=== PATIENT | male | born 1995 | race Caucasian/White ===

== ENCOUNTER 2021-03-21 10:42 | Observation (INO) | payer BC, MEDICAID ==
[~2021-03-21] VITALS: Ht 180.3 cm; Wt 79.5 kg
[2021-03-21] MEDS ORDERED: AMOX875T PO (10:51)
[2021-03-21] MEDS ORDERED: CLIN-250 PO (10:51)
--- OUTSIDE RECORDS SUMMARY | 2021-03-21 11:44 | CCD | Clinical Summary ---
Author Author [facility] Organization [facility] Address [address] [place] [address] Phone Care Team Providers Care Knot Bumper Name Role Phone Kaushal BARNARD, Alia Gilliam PP [phone] Alia Easley NP, I Unavailable [phone] Reason for Referral No Reason for Referral Recorded Reason for Visit and Chief Complaint visit for: check-up - The Chief Complaint is: Patient ambulates to room for [facility] onic follow up; denies problems or concerns at this time. Dickson REED and Chance GARCIA spent 6 minutes signing in patient Problems Includes: Problems addressed during this encounter and other active Problems Current Visit Onset Date - Time Resolved Date - Time Provider C ondition Status Asthma Mild Persistent Unknown - 12:00AM Alia bright PROPERTY CLERK Active Note: Stable - mild persiste nt/controlled Plan of Treatment Future Appointments Date Time Location Provider Chronic Disease Follow-up 07/06/2021 6:20PM [facility] Alia Easley PROPERTY CLERK - Return to the clinic if condition worsens or new symptoms arise You are doing well Continue medication as rx Continue to stay well hydrated at work Call if you start to increase ventolin use F/U in 6 months. Assessments Includes: Assessments from this encounter - Mild persistent asthma Instructions Includes: Instructions from this encounterNo Instructions Recorded Medical Equipment - Implanted Devices Includes: Current DevicesNo Medical Equipment Recorded Medications Includes: Medications discussed during this encounter and other current Medicati ons Current Medications (continue as prescribed) Singulair 10 MG Oral Tablet 10/13/2020 Provider: Alia Easley NP Diagnosis: once a day EQ Loratadine 10 MG Oral Tablet 10/13/2020 Provider : Alia I Kaushal PROPERTY CLERK Diagnosis: once a day [facility] Fluticasone Propionate 50 MCG/ACT Nasal Suspension 10/13 Provider: Alia Easley PROPERTY CLERK Diagnosis: once a day- 2 sprays each nostril daily Dulera 200-5 MCG/ACT Inhalation Aerosol 10/13/2020 Provider: Alia Easley PROPERTY CLERK Diagnosis: twice a day- 2 puffs bidRinse mouth after use Ventolin HFA 108 (90 Base) MCG/ACT Inhalation Aerosol Soluti on 10/13/2020 Provider: Alia Easley PROPERTY CLERK Diagnosis: as directed 2 puffs qid prn Medications Administered Includes: Administered Medications from this encounterNo Administered Medications Recorded Vital Signs Includes: Vital Signs from this encounter Vital Name 12/29/2020 06:00P Blood Pressure Sitting R 118/72 BP Cuff Size Large Pulse Rate-Sitting (bpm) 82 Respiration Rate (breaths/min) 18 Temp-Tympanic (F) 98.1 Weight (lb) 184 Pain Level 0 Oxygen Saturation (%) 98 Results Includes: Results discussed during this encounterNo Results Recorded For Specified Dates History of Present Illness Includes: History of Present Illness from this encounter Petar Brizuela is a 25 year old male. 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 [employer]. - Allergy list reviewed - Medication reconciliation performed - Wheezing is worse with a cold - Responding to bronchodilators - No dyspnea - No cough - Not coughing up sputum - No wheezing - No swollen glands in the neck - No nasal discharge - No sore throat Social History Description Last Updated Physical activity tolerance has not recently decreased 12/29/2020 Smoking status 12/29/2020 : Never smoker 12/29/2020 No secondhand cigarette smoke exposure 10/13/2020 Educational level graduated high school 12/13/2013 Alcohol use (male) less than 4 drinks per occasion / 14 per week 12/13/2013 Caffeine use 12/13/2013 No physical disability 12/13/2013 Normal activities of daily living 12/13/2013 Not using drugs 12/13/2013 control method 05/04/2012 Sexually active 05/04/2012 Educational level: grade was twelve 05/04/2012 Amount of sleep was eight hours/day thi nks sleep is poor due to disorganized home 06/04/2008 Good exercise habits 06/04/2008 Not a current smoker 06/04/2008 Procedures and Surgical History Includes: Procedures from this encounter Procedures Code Diagnosis Performing Provider Service Location Service Date continue current medication counseling on treatment options includi ng Side Effects as well as Risks, Benefits and Alternatives Summary provided electronically in CCDA format & reasonable certainty of receipt Surgical History Last Updated No prior surgery 06/29/2007 Medical History Includes: Medical History addressed during this encounter Description Last Updated A fundoscopic exam through dilated pupils was performe d no 12/13/2013 Last saw a dentist no 12/13/2013 Medication compliance 10/17/2013 Past medical history -Please see Problem List for Act jeanette Chronic Problems 10/17/2013 No previous emergency room visit since last clinic a ppointment~ 10/30/2010 reviewed and unchanged since last visit 08/20/2010 Smoke exposure 08/20/2010 1 snacks per day 06/04/2008 3 meals per day 06/04/2008 A high-salt diet not from processed foods 06/29/2007 A high-sugar diet including sweet snacks 06/29/2007 Diet does not need reduction of caloric intake 008 Diet provides insufficient vegetables 06/29/2007 Diet provides sufficient food variety 06/29/2007 No serious weight loss attempts 06/29/2007 Taking medication inhalers for asthma 06/29/2007 Family History Includes: Family History addressed during this encounter Description Last Updated Family history of cancer Paternal grandfather 014 Family history of depression sister- bipolar 12/14/19 14 Family history of diabetes mellitus Paternal grandmot her 12/13/2013 Family history of drug use father 12/13/2013 Family in good health 05/04/2012 pt concerned about mother - they have a tough time financially, recently moved to [facility] instead of living in hotel 06/04/2008 Family history reviewed - unchanged since last visit 06/04/2008 Family history unchanged 06/04/2008 Review of Systems Includes: Review of Systems from this encounterNo Review of Systems Recorded Mental Status Includes: Mental Status from this encounter Description Oriented to time, place, and person Functional Status Includes: Functional Status from this encounterNo Functional Status Recorded Physical Exam Includes: Physical Exam from this encounter Eyes: -the extraocular movements were normal Ears, Nose, Throat: -external auditory meatus normal -tympanic membrane was normal -no nasal discharge seen -flaring nasal alae were not observed -the oropharynx was normal Neck: -the neck demonstrated no decrease in suppleness -the thyroid showed no abnormalities Chest: -no thoracic asymmetry was noted Lungs: -accessory muscles were not used during expiration -the chest was normal to percussion -normal breath sounds/voice sounds -no wheezing was heard -no rhonchi were heard -no rales/crackles were heard Cardiovascular System: -heart sounds normal -no murmurs were heard -heart rate and rhythm normal Psychiatric Exam: -the grooming was normal -the affect was normal -the mood was euthymic General Status: -well-appearing -in no acute distress -well developed -well developed -well nourished -well nourished Neurological System: -oriented to time, place, and person Skin: -the skin general appearance was normal Vital Signs: -current vital signs reviewed Immunizations Includes: Immunizations addressed during this encounterNo Immunizations Recorded Allergies Includes: Active AllergiesNo Known Allergies Encounters Encounter Provider Location Date Check-In Time Check-Out Time D iagnosis Chronic Disease Follow-up Alia Easley [facility] 021 5:59PM 6:19PM Asthma Mild Persistent Insurance Includes: Active Insurance Policies Plan Name Member ID Group # Subscriber Relationship Effective Da katlyn 1 - Mvp [id number] Petar Fergusonton Self 05/23/19 21 - Unknown 2 - Medicaid-[employer] [id number] Petar Decker on Self 01/21/2003 - Unknown 3 - [id number] [employer] Petar Fergus[place]on Self 10/26/2016 - Unknown Advance Directives Includes: Current Advance Directives Directive Pat Aware Third Libertarian Effective Date Reviewed Status Ebola Screening Performed Yes 05/28/2019 Current and Verified Note: Within the last month, have you traveled outside of the [place]? - NO packet given Pt Bill of Rights, Priv Prac, Ad Dir Yes 10/13/2020 Current and Verified Note: Pt declined AD packet Health Concerns Includes: Health Concerns for current assessmentsNo Active Health Concerns Recorded Goals Includes: Active Goals for current assessmentsNo Active Goals Recorded Interventions Includes: Interventions for current assessmentsNo Interventions Recorded Evaluations & Outcomes Includes: Evaluations & Outcomes for current assessmentsNo Outcomes Recorded
--- OUTSIDE RECORDS SUMMARY | 2021-03-21 11:44 | CCD ---
Author Author [facility] Organization [facility] Address [address] [place], [place] [id number] Phone Care Team Providers Care Night Time Babysitter Name Role Phone LUCIO SHEPPARD Unavailable Allergies, Adverse Reactions, Alerts No Known Drug Allerg ies 07/30/2015 Medications * Discontinued: * Belen Rush * Ventolin HFA 90 mcg/actuation aerosol inhaler 10/14/2015 * LUCIO POST * Flovent HFA 110 mcg/actuation aerosol inhaler 01/15/2021 * Lidocaine Viscous 2 % mucosal solution 01/15/2021 * ketorolac 10 mg tablet 01/15/2021 * amoxicillin 500 mg tablet 01/15/2021 * * ketorolac 10 mg tablet 01/28/2016 * cyclobenzaprine 10 mg tablet 01/28/2016 * Ventolin HFA 90 mcg/actuation aerosol inhaler 02/19/2017 * Ventolin HFA 90 mcg/actuation aerosol inhaler 02/19/2017 * Flovent HFA 110 mcg/actuation aerosol inhaler 02/19/2017 * predniSONE 20 mg tablet 02/19/2017 * predniSONE 20 mg tablet 04/15/2018 * Patsy Chester * Zithromax Z-Adolfo 250 mg tablet 11/29/2016 * predniSONE 20 mg tablet 11/29/2016 * Tessalon Perles 100 mg capsule 11/29/2016 * Pre-existing: * Ventolin HFA 90 mcg/actuation aerosol inhaler Problems Addressed During This Encounter Contact with and (suspected) exposure to other viral communicable diseases (Z20.828) 04/22/2020 Resolved: Moderate persistent asthma, uncomplicated (J45.40) 04/15/2018 Pain in thoracic spine (M54.6) 04/15/2018 Cough (R05) 04/15/2018 Acute bronchitis, unspecified (J20.9) 04/15/2018 Acute pharyngitis, unspecified (J02.9) 04/15/2018 Urticaria, unspecified (L50.9) 04/15/2018 Jaw pain (R68.84) 01/15/2021 Results SARS COV2 SOURCE: NASOPHARYNGEAL 020 Chief Complaint covid testing Jaw painStart amoxicillin ketorolac and viscous lidocaineFollow up with the dentist JAW PAIN Patient states that after being at worl for about 20mins he started to break out in hives, PharyngitisRapid strep negativeThroat cu lture sentAsthmaExacerbationStart prednisone Flovent and albuterol Pt c/o cough and wheezing x 2 days. C/O cough, nasal congestion, periodic JIMÉNEZ , sinus pressure, ear pressure, ST, SOB, body aches x 4-5 days. Pt amb to office with complaint of falli ng on a concrete floor after using a chin up bar in doorway. Pt states that he fell a few hours ago and now has constant dull pain in upper back. PT ambulated to to discuss medication refill; Ventolin. Procedures Performed and Ordered Today * MED SERV, JULEE/WKEND/HOLIDAY 07/30/2015 * RAPID STREP 11/29/2016 * INJECTION IM/SC 02/19/2017 * MED SERV, JULEE/WKEND/HOLIDAY 04/15/2018 * INFECTIOUS AGENT ANTIGEN DETECTION 04/22/2020 * INFECTIOUS AGENT ANTIGEN DETECTION 04/28/2020 * COVID PCR 01/15/2021 * INFECTIOUS AGENT DETECTION COMPLETED WITHIN 2 DAYS 01/15/2021 * * Lab: Collected Date 11/29/16 1656 11/29/2016 THROAT PO CULTURE 11/29/2016 COVID PCR 04/28/2020 Test: AIRWAY INHALATION TREAT 02/19/2017 AIRWAY INHALATION TREAT 02/19/2017 CORRUGATED TUBING DISPOSIBLE W/LG VOL NEB 100 FT 02/19/2017 ABLUTEROL INHALATION DANIS 0.5MG 5 units 02/19/2017 Injection: METHYLPREDNISOLONE SODIUM SUCCINATE INJ TO 125 MG 02/19/2017 Vital signs Body Temperature: Heart Rate: Respiratory Rate: BP: Height: Weight: BMI: O2 Percentage BldC Oximetry : Inhaled Oxygen Concentration: 97.0F 04/15/2018 81 beats per minute 04/15/2018 16 breaths per minute 10/14/2015 110/ 72 mmHg 04/15/2018 5ft, 11in 04/15/2018 188lbs 04/15/20 18 26.218 04/15/2018 98% 04/15/2018 21% 04/15/2018 Immunizations Social History Smoking Status: Never smoker. 04/15/2018 Reason for Referral Functional Status Plan of Treatment Appointments [facility] ed: Thursday, July 30, 2015, 6:10 PM, LUCIO POST Wednesday, October 14, 2015, 4:00 PM, LUCIO POST Thursday, January 28, 2016, 2:00 PM, LUCIO POST Tuesday, November 29, 2016, 4:20 PM, LUCIO POST Sunday, February 19, 2017, 10:40 AM, JOHNNIE POST Sunday, April 15, 2018, 2:30 PM, LUCIO POST Wednesday, April 22, 2020, 8:45 PM, LUCIO POST Tuesday, April 28, 2020, 8:45 PM, SUPRIYA MAY NP December, 8:40 PM, Visits Nurse Instructions: <Follow up with primary care> Return if symptoms worsen <Follow up with primary care> If your symptoms worsen, go to the Emergency Room. When taking antibiotics, also take probiotics. take 1 Prednisone tablet tonight before bedtake 50mg Benadryl tid for next 24 hours <Follow up with primary care> Return if symptoms worsen We will call with lab and/or xray results Return if symptoms worsen When taking antibiotics, also take probiotics. If your symptoms worsen, go to the Emergency Room. The cyclobenzaprine will cause drowsinessIf you haven't improved in a day or two call me and we can order x-rays Symptomatic treatment with OTC cold medications as needed per label instructions as long as you do not have any allergies or intolerance to these medication Payers Insurance Policy Type Po licy ID Relation Subscriber Expi ration [facility] Commercial Insurance [id number] Víctor BECERRA [facility] Cross Blue Cross/Shield [id number] Víctor BECERRA Encounters OFFICE/OUTPATIENT SIT,EST 01/15/2021 Diagnoses Contact with and (suspected) exposure to other viral communicable diseases OFFICE/OUTPATIENT SIT, EST 04/15/2018 OFFICE/OUTPATIENT SIT, EST 02/19/2017 OFFICE/OUTPATIENT SIT, EST 11/29/2016 OFFICE/OUTPATIENT SIT, EST 01/28/2016 OFFICE/OUTPATIENT SIT, EST 10/14/2015 OFFICE/OUTPATIENT SIT, EST 07/30/2015
--- OUTSIDE RECORDS SUMMARY | 2021-03-21 11:44 | CCD ---
Author Author [facility] Organization [facility] Address [address] [place], [place] [id number] Phone Care Team Providers Care Seasonal Delivery Driver Name Role Phone LUCIO SHEPPARD Unavailable Allergies, Adverse Reactions, Alerts No Known Drug Allerg ies 07/30/2015 Medications * Continue: * LUCIO POST * amoxicillin 875 mg tablet , Take 1 tablet orally Every 12 hours 03/16/2021 * Discontinued: * Belen Rush * Ventolin HFA 90 mcg/actuation aerosol inhaler 10/14/2015 * LUCIO POST * Flovent HFA 110 mcg/actuation aerosol inhaler 01/15/2021 * Lidocaine Viscous 2 % mucosal solution 01/15/2021 * ketorolac 10 mg tablet 01/15/2021 * amoxicillin 500 mg tablet 01/15/2021 * * ketorolac 10 mg tablet 01/28/2016 * cyclobenzaprine 10 mg tablet 01/28/2016 * Patsy Chester * Zithromax Z-Adolfo 250 mg tablet 11/29/2016 * predniSONE 20 mg tablet 11/29/2016 * Tessalon Perles 100 mg capsule 11/29/2016 * mir rodriguez LPN * Ventolin HFA 90 mcg/actuation aerosol inhaler 02/19/2017 * Ventolin HFA 90 mcg/actuation aerosol inhaler 02/19/2017 * Flovent HFA 110 mcg/actuation aerosol inhaler 02/19/2017 * predniSONE 20 mg tablet 02/19/2017 * predniSONE 20 mg tablet 04/15/2018 * Pre-existing: * Ventolin HFA 90 mcg/actuation aerosol inhaler Problems Addressed During This Encounter Jaw pain (R68.84) 03/16/2021 Resolved: Moderate persistent asthma, uncomplicated (J45.40) 04/15/2018 Pain in thoracic spine (M54.6) 04/15/2018 Cough (R05) 04/15/2018 Acute bronchitis, unspecified (J20.9) 04/15/2018 Acute pharyngitis, unspecified (J02.9) 04/15/2018 Urticaria, unspecified (L50.9) 04/15/2018 Jaw pain (R68.84) 01/15/2021 Contact with and (suspected) exposure to other viral communicable diseases (Z20.828) 03/16/2021 Contact with and (suspected) exposure to other viral communicable diseases (Z20.828) 03/16/2021 Results SARS COV2 SOURCE: NASOPHARYNGEAL 020 Chief Complaint Jaw painLikely dental infectionStart yony xicillinFollow up with the dentist JAW INFECTION Testing for COVID19 is negative. Howeve r - negative results do not rule out a SARS CoV-2 infection, particularly in those who have been in contact with the virus.Supportive symptom management is recommendedWear a mask, diligent hand hygiene and social distancingVit C, D, and Zinc recommended, if not contraindicated for youStay hydratedSleep on abdomen or side when coughing. Follow up with any worsening symptoms for further guidanceQuarantine when indicated COVID TEST covid testing Jaw painStart amoxicillin ketorolac and [...] DETECTION COMPLETED WITHIN 2 DAYS 01/15/2021 * COVID PCR 02/04/2021 * INFECTIOUS AGENT DETECTION COMPLETED WITHIN 2 DAYS 02/04/2021 * * Lab: Collected Date 11/29/16 1656 11/29/2016 THROAT PO CULTURE 11/29/2016 COVID PCR 04/28/2020 Test: AIRWAY INHALATION TREAT 02/19/2017 AIRWAY INHALATION TREAT 02/19/2017 ABLUTEROL INHALATION DANIS 0.5MG 5 units 02/19/2017 CORRUGATED TUBING DISPOSIBLE W/LG VOL NEB 100 FT 02/19/2017 Injection: METHYLPREDNISOLONE SODIUM SUCCINATE INJ TO 125 MG 02/19/2017 Vital signs Body Temperature: Heart Rate: Respiratory Rate: BP: Height: Weight: BMI: O2 Percentage BldC Oximetry : Inhaled Oxygen Concentration: 98.3F 03/16/2021 118 beats per minut e 03/16/2021 16 breaths per minute 10/14/2015 110/ 72 mmHg 04/15/2018 5ft, 11in 03/16/2021 190lbs 03/16/20 21 26.497 03/16/2021 98% 03/16/2021 21% 03/16/2021 Immunizations Social History Smoking Status: Never smoker. 04/15/2018 Reason for Referral Functional Status Plan of Treatment Appointments [facility] ed: Thursday, July 30, 2015, 6:10 [...] MAY NP December, 8:40 PM, Visits Nurse Thursday, February 04, 2021, 4:50 PM, Visits Covid Tuesday, March 16, 2021, 11:40 AM, LUCIO POST Instructions: <Follow up with primary care> Return if symptoms worsen When taking antibiotics, also take probiotics. Follow up with the dentist <Follow up with primary care> Return if [...] Po licy ID Relation Subscriber Expi ration [facility] Commercial Insurance [id number] Self SUZI BECERRA [facility] Blue Cross/[facility] [id number] Self SUZI BECERRA Encounters OFFICE/OUTPATIENT SIT, EST 03/16/2021 Diagnoses Jaw pain OFFICE/OUTPATIENT SIT,EST 02/04/2021 Diagnoses Contact with and (suspected) exposure to other viral communicable diseases OFFICE/OUTPATIENT SIT,EST 01/15/2021 Diagnoses Contact with and (suspected) exposure to other viral communicable diseases OFFICE/OUTPATIENT SIT, EST 04/15/2018 OFFICE/OUTPATIENT SIT, EST 02/19/2017 OFFICE/OUTPATIENT SIT, EST 11/29/2016 OFFICE/OUTPATIENT SIT, EST 01/28/2016 OFFICE/OUTPATIENT SIT, EST 10/14/2015 OFFICE/OUTPATIENT SIT, EST 07/30/2015
--- OUTSIDE RECORDS SUMMARY | 2021-03-21 11:45 | CCD ---
Author Author [facility] Organization [facility] Address Unknown Phone Unavailable Care Team Providers Care Food Services Director Name Role Phone Douglas Gee Kisha NETWORKING SPECIALIST Unavailable Unavailable Potter, M Kisha NETWORKING SPECIALIST Unavailable Unavailable Potter, M Kisha NETWORKING SPECIALIST Unavailable Unavailable Potter, M Kisha NETWORKING SPECIALIST Unavailable Unavailable Potter, M Kisha NETWORKING SPECIALIST Unavailable Unavailable Potter, M Kisha NETWORKING SPECIALIST Unavailable Unavailable Potter, M Kisha NETWORKING SPECIALIST Unavailable Unavailable Potter, M Kisha NETWORKING SPECIALIST Unavailable Unavailable Potter, M Kisha NETWORKING SPECIALIST Unavailable Unavailable Potter, M Kisha NETWORKING SPECIALIST Unavailable Unavailable Potter, M Kisha NETWORKING SPECIALIST Unavailable Unavailable Potter, M Kisha NETWORKING SPECIALIST Unavailable Unavailable Potter, M Kisha NETWORKING SPECIALIST Unavailable Unavailable Potter, M Kisha NETWORKING SPECIALIST Unavailable Unavailable Potter, M Kisha NETWORKING SPECIALIST Unavailable Unavailable Potter, M Kisha NETWORKING SPECIALIST Unavailable Unavailable Potter, M Kisha NETWORKING SPECIALIST Unavailable Unavailable Potter, M Kisha NETWORKING SPECIALIST Unavailable Unavailable Potter, M Kisha NETWORKING SPECIALIST Unavailable Unavailable Potter, M Kisha NETWORKING SPECIALIST Unavailable Unavailable Potter, M Kisha NETWORKING SPECIALIST Unavailable Unavailable Potter, M Kisha NETWORKING SPECIALIST Unavailable Unavailable Potter, M Kisha NETWORKING SPECIALIST Unavailable Unavailable Potter, M Kisha NETWORKING SPECIALIST Unavailable Unavailable Potter, M Kisha NETWORKING SPECIALIST Unavailable Unavailable Potter, M Kisha NETWORKING SPECIALIST Unavailable Unavailable Potter, M Kisha NETWORKING SPECIALIST Unavailable Unavailable Potter, M Kisha NETWORKING SPECIALIST Unavailable Unavailable Potter, M Kisha NETWORKING SPECIALIST Unavailable Unavailable Potter, M Kisha NETWORKING SPECIALIST Unavailable Unavailable Potter, M Kisha NETWORKING SPECIALIST Unavailable Unavailable Potter, M Kisha NETWORKING SPECIALIST Unavailable Unavailable Potter, M Kisha NETWORKING SPECIALIST Unavailable Unavailable Potter, M Kisha NETWORKING SPECIALIST Unavailable Unavailable Potter, M Kisha NETWORKING SPECIALIST Unavailable Unavailable Potter, M Kisha NETWORKING SPECIALIST Unavailable Unavailable Potter, M Kisha NETWORKING SPECIALIST Unavailable Unavailable Potter, M Kisha NETWORKING SPECIALIST Unavailable Unavailable Potter, M Kisha NETWORKING SPECIALIST Unavailable Unavailable Potter, M Kisha NETWORKING SPECIALIST Unavailable Unavailable Potter, M Kisha NETWORKING SPECIALIST Unavailable Unavailable Potter, M Kisha NETWORKING SPECIALIST Unavailable Unavailable Potter, M Kisha NETWORKING SPECIALIST Unavailable Unavailable Potter, M Kisha NETWORKING SPECIALIST Unavailable Unavailable Potter, M Kisha NETWORKING SPECIALIST Unavailable Unavailable Potter, M Kisha NETWORKING SPECIALIST Unavailable Unavailable Potter, M Kisha NETWORKING SPECIALIST Unavailable Unavailable Potter, M Kisha NETWORKING SPECIALIST Unavailable Unavailable Potter, M Kisha NETWORKING SPECIALIST Unavailable Unavailable Potter, M Kisha NETWORKING SPECIALIST Unavailable Unavailable Potter, M Kisha NETWORKING SPECIALIST Unavailable Unavailable Potter, M Kisha NETWORKING SPECIALIST Unavailable Unavailable Potter, M Kisha NETWORKING SPECIALIST Unavailable Unavailable Potter, M Kisha NETWORKING SPECIALIST Unavailable Unavailable Potter, M Kisha NETWORKING SPECIALIST Unavailable Unavailable Potter, M Kisha NETWORKING SPECIALIST Unavailable Unavailable Potter, M Kisha NETWORKING SPECIALIST Unavailable Unavailable Potter, M Kisha NETWORKING SPECIALIST Unavailable Unavailable Kaushal, I Alia NETWORKING SPECIALIST Unavailable Unavailable Kaushal, I Alia NETWORKING SPECIALIST Unavailable Unavailable Kaushal, I Alia NETWORKING SPECIALIST Unavailable Unavailable Kaushal, I Alia NETWORKING SPECIALIST Unavailable Unavailable Kaushal, I Alia NETWORKING SPECIALIST Unavailable Unavailable Kaushal, I Alia NETWORKING SPECIALIST Unavailable Unavailable Kaushal, I Alia NETWORKING SPECIALIST Unavailable Unavailable Kaushal, I Alia NETWORKING SPECIALIST Unavailable Unavailable Kaushal, I Alia NETWORKING SPECIALIST Unavailable Unavailable Kaushal, I Alia NETWORKING SPECIALIST Unavailable Unavailable Kaushal, I Alia NETWORKING SPECIALIST Unavailable Unavailable Kaushal, I Alia NETWORKING SPECIALIST Unavailable Unavailable Kaushal, I Alia NETWORKING SPECIALIST Unavailable Unavailable Kaushal, I Alia NETWORKING SPECIALIST Unavailable Unavailable Kaushal, I Alia NETWORKING SPECIALIST Unavailable Unavailable Kaushal, I Alia NETWORKING SPECIALIST Unavailable Unavailable Kaushal, I Alia NETWORKING SPECIALIST Unavailable Unavailable Kaushal, I Alia NETWORKING SPECIALIST Unavailable Unavailable Kaushal, I Alia NETWORKING SPECIALIST Unavailable Unavailable Kaushal, I Alia NETWORKING SPECIALIST Unavailable Unavailable Kaushal, I Alia NETWORKING SPECIALIST Unavailable Unavailable Kaushal, I Alia NETWORKING SPECIALIST Unavailable Unavailable Kaushal, I Alia NETWORKING SPECIALIST Unavailable Unavailable Kaushal, I Alia NETWORKING SPECIALIST Unavailable Unavailable Kaushal, I Alia NETWORKING SPECIALIST Unavailable Unavailable Kaushal, I Alia NETWORKING SPECIALIST Unavailable Unavailable Kaushal, I Alia NETWORKING SPECIALIST Unavailable Unavailable Kaushal, I Alia NETWORKING SPECIALIST Unavailable Unavailable Kaushal, I Alia NETWORKING SPECIALIST Unavailable Unavailable Kaushal, I Alia NETWORKING SPECIALIST Unavailable Unavailable Kaushal, I Alia NETWORKING SPECIALIST Unavailable Unavailable Kaushal, I Alia NETWORKING SPECIALIST Unavailable Unavailable Kaushal, I Alia NETWORKING SPECIALIST Unavailable Unavailable Kaushal, I Alia NETWORKING SPECIALIST Unavailable Unavailable Kaushal, I Alia NETWORKING SPECIALIST Unavailable Unavailable Kaushal, I Alia NETWORKING SPECIALIST Unavailable Unavailable Kaushal, I Alia NETWORKING SPECIALIST Unavailable Unavailable Kaushal, I Alia NETWORKING SPECIALIST Unavailable Unavailable Kaushal, I Alia NETWORKING SPECIALIST Unavailable Unavailable Kaushal, I Alia NETWORKING SPECIALIST Unavailable Unavailable Kaushal, I Alia NETWORKING SPECIALIST Unavailable Unavailable Kaushal, I Alia NETWORKING SPECIALIST Unavailable Unavailable Kaushal, I Alia NETWORKING SPECIALIST Unavailable Unavailable Kaushal, I Alia NETWORKING SPECIALIST Unavailable Unavailable Kaushal, I Alia NETWORKING SPECIALIST Unavailable Unavailable Kaushal, I Alia NETWORKING SPECIALIST Unavailable Unavailable Kaushal, I Alia NETWORKING SPECIALIST Unavailable Unavailable Kaushal, I Alia NETWORKING SPECIALIST Unavailable Unavailable Kaushal, I Alia NETWORKING SPECIALIST Unavailable Unavailable Kaushal, I Alia NETWORKING SPECIALIST Unavailable Unavailable Kaushal, I Alia NETWORKING SPECIALIST Unavailable Unavailable Kaushal, I Alia NETWORKING SPECIALIST Unavailable Unavailable Kaushal, I Alia NETWORKING SPECIALIST Unavailable Unavailable Kaushal, I Alia NETWORKING SPECIALIST Unavailable Unavailable Kaushal, I Alia NETWORKING SPECIALIST Unavailable Unavailable Kaushal, I Alia NETWORKING SPECIALIST Unavailable Unavailable Kaushal, I Alia NETWORKING SPECIALIST Unavailable Unavailable Kaushal, I Alia NETWORKING SPECIALIST Unavailable Unavailable Kaushal, I Alia NETWORKING SPECIALIST Unavailable Unavailable Kaushal, I Alia NETWORKING SPECIALIST Unavailable Unavailable Kaushal, I Alia NETWORKING SPECIALIST Unavailable Unavailable Kaushal, I Alia NETWORKING SPECIALIST Unavailable Unavailable Kaushal, I Alia NETWORKING SPECIALIST Unavailable Unavailable Kaushal, I Alia NETWORKING SPECIALIST Unavailable Unavailable Kaushal, I Alia NETWORKING SPECIALIST Unavailable Unavailable Kaushal, I Alia NETWORKING SPECIALIST Unavailable Unavailable Kaushal, I Alia NETWORKING SPECIALIST Unavailable Unavailable Kaushal, I Alia NETWORKING SPECIALIST Unavailable Unavailable Kaushal, I Alia NETWORKING SPECIALIST Unavailable Unavailable Kaushal, I Alia NETWORKING SPECIALIST Unavailable Unavailable Kaushal, I Alia NETWORKING SPECIALIST Unavailable Unavailable Kaushal, I Alia NETWORKING SPECIALIST Unavailable Unavailable Kaushal, I Alia NETWORKING SPECIALIST Unavailable Unavailable Kaushal, I Alia NETWORKING SPECIALIST Unavailable Unavailable Kaushal, I Alia NETWORKING SPECIALIST Unavailable Unavailable SHEPPARD, W LUCIO PA Unavailable Unavailable SHEPPARD, W LUCIO PA Unavailable Unavailable SHEPPARD, W LUCIO PA Unavailable Unavailable SHPEPARD, W LUCIO PA Unavailable Unavailable SHEPPARD, W LUCIO PA Unavailable Unavailable SHEPPARD, W LUCIO PA Unavailable Unavailable SHEPPARD, W LUCIO PA Unavailable Unavailable SHEPPARD, W LUCIO PA Unavailable Unavailable SHEPPARD, W LUCIO PA Unavailable Unavailable SHEPPARD, W LUCIO PA Unavailable Unavailable SHEPPARD, W LUCIO PA Unavailable Unavailable SHEPPARD, W LUCIO PA Unavailable Unavailable SHEPPARD, W LUCIO PA Unavailable Unavailable SHEPPARD, W LUCIO PA Unavailable Unavailable SHEPPARD, W LUICO PA Unavailable Unavailable SHEPPARD, W LUCIO PA Unavailable Unavailable SHEPPARD, W LUCIO PA Unavailable Unavailable SHEPPARD, W LUCIO PA Unavailable Unavailable SHEPPARD, W LUCIO PA Unavailable Unavailable SHEPPARD, W LUCIO PA Unavailable Unavailable SHEPPARD, W LUCIO PA Unavailable Unavailable SHEPPARD, W LUCIO PA Unavailable Unavailable SHEPPARD, W LUCIO PA Unavailable Unavailable SHEPPARD, W LUCIO PA Unavailable Unavailable SHEPPARD, W LUCIO PA Unavailable Unavailable SHEPPARD, W LUCIO PA Unavailable Unavailable SHEPPARD, W LUCIO PA Unavailable Unavailable SHEPPARD, W LUCIO PA Unavailable Unavailable SHEPPARD, W LUCIO PA Unavailable Unavailable SHEPPARD, W LUCIO PA Unavailable Unavailable SHEPPARD, W LUCIO PA Unavailable Unavailable SHEPPARD, W LUCIO PA Unavailable Unavailable SHEPPARD, W LUCIO PA Unavailable Unavailable SHEPPARD, W LUCIO PA Unavailable Unavailable SHEPPARD, W LUCIO PA Unavailable Unavailable SHEPPARD, W LUCIO PA Unavailable Unavailable SHEPPARD, W LUCIO PA Unavailable Unavailable SHEPPARD, W LUCIO PA Unavailable Unavailable SHEPPARD, W LUCIO PA Unavailable Unavailable SHEPPARD, W LUCIO PA Unavailable Unavailable SHEPPARD, W LUCIO PA Unavailable Unavailable Claudia SHEPPARD PA Unavailable Unavailable VALARIE, Claudia POST Unavailable Unavailable Claudia SHEPPARD PA Unavailable Unavailable Re-disclosure Warning The records that you are about to access may contain information from federally-assisted alcohol or drug abuse programs. If such information is present, then the following federally mandated warning applies: This information has been disclosed to you from records protected by federal confidentiality rules (42 CFR part 2). The federal rules prohibit you from making any further disclosure of this information unless further disclosure is expressly permitted by the written consent of the person to whom it pertains or as otherwise permitted by 42 CFR part 2. A general authorization for the release of medical or other information is NOT sufficient for this purpose. The Federal rules restrict any use of the information to criminally investigate or prosecute any alcohol or drug abuse patient.The records that you are about to access may contain highly sensitive health information, the redisclosure of which is protected by Article 27-F of the [facility] Public Health law. If you continue you may have access to information: Regarding HIV / AIDS; Provided by facilities licensed or operated by the [facility] Office of Mental Health; or Provided by the [facility] Office for People With Developmental Disabilities. If such information is present, then the following [facility] mandated warning applies: This information has been disclosed to you from confidential records which are protected by state law. State law prohibits you from making any further disclosure of this information without the specific written consent of the person to whom it pertains, or as otherwise permitted by law. Any unauthorized further disclosure in violation of state law may result in a fine or long term sentence or both. A general authorization for the release of medical or other information is NOT sufficient authorization for further disc losure. 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 Descr iption Data Source(s) packet given Pt Bill of Rights, Priv Prac, Ad Dir completed packet given Pt Bill of Rights, Priv Prac, Ad Dir [facility] ([facility]) Note: Pt declined AD packet Allergies and Adverse Reactions Type Description Substance Reaction Status Data Source(s ) Allergy to substance No Known Allergies No known allergies (situation ) [facility] ([facility]) Allergy to substance No Known Allergies No known allergies (situation ) [facility] Encounters Encounter Providers Location Date Indications Data Source(s ) OutpatientOFFICE/OUTPATIENT VISIT, EST 03/16/2021 Attender: LUCIO POST 03/16/2021 12:30:25 PM EDT 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[facility]) OFFICE/OUTPATIENT VISIT,EST 02/04/2021Outpatient Attender: Анна Gee NP 02/04/2021 06:13:35 PM EDT 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[facility]) OFFICE/OUTPATIENT VISIT,EST 01/15/2021Outpatient Attender: FABIANA POST 01/15/2021 05:16:04 PM EDT 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[facility]) <td ID="encounterTypeDescriptionID0">Chr onic Disease Follow-up</td><td>Alia Easley NP</td><td>[facility]</td><td>12/29/2020</td><td>5:59PM</td><td>6:19PM</td><td><content ID="encounterDiagnosisID0-0">Asthma Mild Persistent</content></td>Outpatient Attender: Alia Easley NP [facility] 12/29/2020 05:59:00 PM EDT - 12/29/2020 06:19:23 PM EDT Asthma Mild Persistent [facility] ([facility]) Asthma Mild Persistent Outpatient<td ID="encounterTypeDescripti onID0">Chronic Disease Follow- up</td><td>Alia Easley NP</td><td>[facility]</td><td>10/13/2020</td><td>6:08PM</td><td>6:43PM</td><td><content ID="encounterDiagnosisID0-0">Kyphoscoliosis</content>, <content ID="encounterDiagnosisID0-1">Visit For: Routine Adult H&p Without Abnormal Findings</content>, <content ID="encounterDiagnosisID0-2">Asthma Moderate Persistent</content></td> Attender: Alia Easley NP [facility] 2020 06:08:00 PM EDT - 10/13/2020 06:43:43 PM EDT Asthma Moderate PersistentVisit For: Routine Adult H&p Without Abnormal FindingsKyphoscoliosis [facility] ([facility]) Asthma Moderate Persistent Visit For: Routine Adult H&p Without Abn ormal Findings Kyphoscoliosis Medications Medication Brand Name Start Date Product Form Dose Route Admi nistrative Instructions Pharmacy Instructions Status Indications Reaction Description Data Source(s) Clindamycin 300 MG Oral Capsule CLINDAMYCIN HCL 03/18/2021 12:00 :00 AM EDT capsule 30 TAKE ONE CAPSULE BY MOUTH EVERY 8 HOURS TAKE ONE CAPSULE BY MOUTH EVERY 8 HOURS SOLD: 03/19/2021 [facility] Amoxicillin 875 MG Oral Tablet amoxicillin 875 mg tabl et amoxicillin 875 mg tablet 03/16/2021 12:00:00 AM EDT 1 completed , Take 1 tablet orally Every 12 hours 03/16/2021 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[facility]) 875 mg 03/16/2021 12:00:00 AM EDT tablet 20 TAKE ONE TABLET BY MOUTH EVERY 12 HOURS TAKE ONE TABLET BY MOUTH EVERY 12 HOURS SOLD: 03/16/2021 [facility] 10 mg 10/13/2020 12:00:00 AM EDT tablet 30 TAKE ONE TABLET BY MOUTH EVERY DAY TAKE ONE TABLET BY MOUTH EVERY DAY SOLD: 03/14/2021 [facility] 50 mcg/actuation 10/13/2020 12:00:00 AM EDT spray,suspension 16 SPRAY TWO SPRAYS IN EACH NOSTRIL EVERY DAY SPRAY TWO SPRAYS IN EACH NOSTRIL EVERY DAY SOLD: 10/19/2020 [facility] montelukast 10 MG Oral Tablet MONTELUKAST SODIUM 10/13/2020 12:0 0:00 AM EDT tablet 30 TAKE ONE TABLET BY MOUTH EVERY D AY TAKE ONE TABLET BY MOUTH EVERY DAY SOLD: 03/14/2021 [facility] 50 mcg/actuation 10/13/2020 12:00:00 AM EDT spray,suspension 16 SPRAY TWO SPRAYS IN EACH NOSTRIL EVERY DAY SPRAY TWO SPRAYS IN EACH NOSTRIL EVERY DAY SOLD: 11/18/2020 [facility] 50 mcg/actuation 10/13/2020 12:00:00 AM EDT spray,suspension 16 SPRAY TWO SPRAYS IN EACH NOSTRIL EVERY DAY SPRAY TWO SPRAYS IN EACH NOSTRIL EVERY DAY SOLD: 12/18/2020 [facility] montelukast 10 MG Oral Tablet MONTELUKAST SODIUM 10/13/2020 12:0 0:00 AM EDT tablet 30 TAKE ONE TABLET BY MOUTH EVERY D AY TAKE ONE TABLET BY MOUTH EVERY DAY SOLD: 01/21/2021 [facility] 120 ACTUAT formoterol fumarate 0.005 MG/ ACTUAT / mometasone furoate 0.2 MG/ACTUAT Metered Dose Inhaler [Dulera] 200-5 mcg/actuation MOMETASONE/FORMOTEROL 10/13/2020 12:00:00 AM EDT HFA aerosol inhaler 13 INHALE TWO PUFFS BY MOUTH TWICE A DAY RINSE MOUTH AFTER USE INHALE TWO PUFFS BY MOUTH TWICE A DAY RINSE MOUTH AFTER USE SOLD: 10/19/2020 [facility] montelukast 10 MG Oral Tablet MONTELUKAST SODIUM 10/13/2020 12:0 0:00 AM EDT tablet 30 TAKE ONE TABLET BY MOUTH EVERY D AY TAKE ONE TABLET BY MOUTH EVERY DAY SOLD: 12/18/2020 [facility] 200 ACTUAT Albuterol 0.09 MG/ACTUAT Mete red Dose Inhaler [Ventolin] Ventolin HFA 108 (90 Base) MCG/ACT Inhalation Aerosol Solution Ventolin HFA 108 (90 Base) MCG/ACT Inhalation Aerosol Solution 10/13/2020 12:00:00 AM EDT active [id number] 200 ACTUAT albuter ol 0.09 MG/ACTUAT Metered Dose Inhaler [Ventolin] [facility] ([facility]) montelukast 10 MG Oral Tablet MONTELUKAST SODIUM 10/13/2020 12:0 0:00 AM EDT tablet 30 TAKE ONE TABLET BY MOUTH EVERY D AY TAKE ONE TABLET BY MOUTH EVERY DAY SOLD: 11/18/2020 [facility] 90 mcg/actuation 10/13/2020 12:00:00 AM EDT HFA aerosol inha ler 18 INHALE TWO PUFFS BY MOUTH FOUR TIMES A DAY NEEDED INHALE TWO PUFFS BY MOUTH FOUR TIMES A DAY NEEDED SOLD: 10/19/2020 [facility] 60 ACTUAT formoterol fumarate 0.005 MG/A CTUAT / mometasone furoate 0.2 MG/ACTUAT Metered Dose Inhaler [Dulera] Dulera 200-5 MCG/ACT Inhalation Aerosol Dulera 200-5 MCG/ACT Inhalation Aerosol 10/13/2020 12:00:00 AM EDT 1 active 60 ACTUAT formoterol fumarate 0.005 MG/A CTUAT / mometasone furoate 0.2 MG/ACTUAT Metered Dose Inhaler [Dulera] [facility] ([facility]) montelukast 10 MG Oral Tablet MONTELUKAST SODIUM 10/13/2020 12:0 0:00 AM EDT tablet 30 TAKE ONE TABLET BY MOUTH EVERY D AY TAKE ONE TABLET BY MOUTH EVERY DAY SOLD: 10/19/2020 [facility] 90 mcg/actuation 10/13/2020 12:00:00 AM EDT HFA aerosol inha ler 18 INHALE TWO PUFFS BY MOUTH FOUR TIMES A DAY NEEDED INHALE TWO PUFFS BY MOUTH FOUR TIMES A DAY NEEDED SOLD: 11/18/2020 [facility] 120 ACTUAT formoterol fumarate 0.005 MG/ ACTUAT / mometasone furoate 0.2 MG/ACTUAT Metered Dose Inhaler [Dulera] 200-5 mcg/actuation MOMETASONE/FORMOTEROL 10/13/2020 12:00:00 AM EDT HFA aerosol inhaler 13 INHALE TWO PUFFS BY MOUTH TWICE A DAY RINSE MOUTH AFTER USE INHALE TWO PUFFS BY MOUTH TWICE A DAY RINSE MOUTH AFTER USE SOLD: 01/21/2021 [facility] 90 mcg/actuation 10/13/2020 12:00:00 AM EDT HFA aerosol inha ler 8 INHALE TWO PUFFS BY MOUTH FOUR TIMES A DAY NEEDED INHALE TWO PUFFS BY MOUTH FOUR TIMES A DAY NEEDED SOLD: 12/18/2020 [facility] 120 ACTUAT formoterol fumarate 0.005 MG/ ACTUAT / mometasone furoate 0.2 MG/ACTUAT Metered Dose Inhaler [Dulera] 200-5 mcg/actuation MOMETASONE/FORMOTEROL 10/13/2020 12:00:00 AM EDT HFA aerosol inhaler 13 INHALE TWO PUFFS BY MOUTH TWICE A DAY RINSE MOUTH AFTER USE INHALE TWO PUFFS BY MOUTH TWICE A DAY RINSE MOUTH AFTER USE SOLD: 12/18/2020 [facility] 120 ACTUAT formoterol fumarate 0.005 MG/ ACTUAT / mometasone furoate 0.2 MG/ACTUAT Metered Dose Inhaler [Dulera] 200-5 mcg/actuation MOMETASONE/FORMOTEROL 10/13/2020 12:00:00 AM EDT HFA aerosol inhaler 13 INHALE TWO PUFFS BY MOUTH TWICE A DAY RINSE MOUTH AFTER USE INHALE TWO PUFFS BY MOUTH TWICE A DAY RINSE MOUTH AFTER USE SOLD: 11/18/2020 [facility] 10 mg 10/13/2020 12:00:00 AM EDT tablet 30 TAKE ONE TABLET BY MOUTH EVERY DAY TAKE ONE TABLET BY MOUTH EVERY DAY SOLD: 10/19/2020 [facility] 10 mg 10/13/2020 12:00:00 AM EDT tablet 30 TAKE ONE TABLET BY MOUTH EVERY DAY TAKE ONE TABLET BY MOUTH EVERY DAY SOLD: 11/18/2020 [facility] 90 mcg/actuation 10/13/2020 12:00:00 AM EDT HFA aerosol inha ler 8 INHALE TWO PUFFS BY MOUTH FOUR TIMES A DAY NEEDED INHALE TWO PUFFS BY MOUTH FOUR TIMES A DAY NEEDED SOLD: 01/21/2021 [facility] 10 mg 10/13/2020 12:00:00 AM EDT tablet 30 TAKE ONE TABLET BY MOUTH EVERY DAY TAKE ONE TABLET BY MOUTH EVERY DAY SOLD: 12/18/2020 [facility] Flut[facility]asone Propionate 50 MCG/ACT Nasal Suspension [facility] Fluticasone Propionate 50 MCG/ACT Nasal Suspension 10/13/2020 12:00:00 AM EDT 1 active [facility] Fl[facility] [address] [facility]) EQ Loratadine 10 MG Oral Tablet EQ Loratadine 10 MG Oral Tab let 10/13/2020 12:00:00 AM EDT 1 active EQ Lorat adine [facility] ([facility]) montelukast 10 MG Oral Tablet [Singulair] Singulair 10 MG Oral Tablet Singulair 10 MG Oral Tablet 10/13/2020 12:00:00 AM EDT 1 active montelukast 10 MG Oral Tablet [Singulair] [facility] ([facility]) 120 ACTUAT formoterol fumarate 0.005 MG/ ACTUAT / mometasone furoate 0.2 MG/ACTUAT Metered Dose Inhaler [Dulera] 200-5 mcg/actuation MOMETASONE/FORMOTEROL 10/13/2020 12:00:00 AM EDT HFA aerosol inhaler 13 INHALE TWO PUFFS BY MOUTH TWICE A DAY RINSE MOUTH AFTER USE INHALE TWO PUFFS BY MOUTH TWICE A DAY RINSE MOUTH AFTER USE SOLD: 03/14/2021 [facility] 90 mcg/actuation 10/13/2020 12:00:00 AM EDT HFA aerosol inha ler 8 INHALE TWO PUFFS BY MOUTH FOUR TIMES A DAY NEEDED INHALE TWO PUFFS BY MOUTH FOUR TIMES A DAY NEEDED SOLD: 03/14/2021 [facility] 90 mcg/actuation 08/15/2020 12:00:00 AM EDT HFA aerosol inha ler 13 INHALE TWO PUFFS BY MOUTH FOUR TIMES A DAY NEEDED INHALE TWO PUFFS BY MOUTH FOUR TIMES A DAY NEEDED SOLD: 08/15/2020 [facility] 90 mcg/actuation 08/15/2020 12:00:00 AM EDT HFA aerosol inha ler 13 INHALE TWO PUFFS BY MOUTH FOUR TIMES A DAY NEEDED INHALE TWO PUFFS BY MOUTH FOUR TIMES A DAY NEEDED SOLD: 10/02/2020 [facility] 120 ACTUAT Fluticasone propionate 0.044 MG/ACTUAT Metered Dose Inhaler [Flovent] Flovent HFA 44 MCG/ACT Inhalation Aerosol Flovent HFA 44 MCG/ACT Inhalation Aerosol 04/30/2019 12:00:00 AM EST 1 aborted 120 ACTUAT fluticasone propionate 0.044 MG/ACTUAT Metered Dose Inhaler [Flovent] [facility] Amoxicillin 500 MG Oral Tablet amoxicillin 500 mg tabl et amoxicillin 500 mg tablet 04/15/2018 12:00:00 AM EST 1 completed 01/15/2021 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[facility]) Lidocaine Hydrochloride 20 MG/ML Mucous Membrane Topical Solution Lidocaine Viscous 2 % mucosal solution Lidocaine Viscous 2 % mucosal solution 04/15/2018 12:00:00 AM EST completed 2020 [facility] ([facility]) Ketorolac Tromethamine 10 MG Oral Tablet ketorolac 10 mg tablet ketorolac 10 mg tablet 04/15/2018 12:00:00 AM EST 1 completed 01/15/2021 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[facility]) 120 ACTUAT Fluticasone propionate 0.11 M G/ACTUAT Metered Dose Inhaler [Flovent] Flovent HFA 110 mcg/actuation aerosol inhaler Flovent HFA 110 mcg/actuation aerosol inhaler 07/30/2015 12:00:00 AM EST 2 complet ed 01/15/2021 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[facility]) Insurance Providers Payer name Policy type / Coverage type Policy ID Covered democrat ID Covered democrat's relationship to engle Policy Engle Plan Information Medicaid [facility] Other 02 [id number] Self 02 Medicaid [facility] Other 02 [id number] Self 02 NF PENDING UNAVAILABLE SP UNAVAIL ABLE MEDICAID [facility] [id number] SP [id number] [facility] [place] Other 0 [id number] Self 0 [place] [facility] [place] Other 0 [id number] Self 0 [place] [facility] [place] Other 0 [id number] Self 0 OLIVER [id number] SP [id number] SELF PAY [facility] Other 0 [id number] Self 0 [facility] [place] [facility] [id number] Commercial Insurance [facility] [place] [facility] Medicaid [id number] Self [employer] NO FAULT [id number] SP [id number] [facility] ATTN:JERRY [id number] SP [id number] [facility] MEDICAID [id number] SP [id number] [facility] MEDICAID [id number] SP [id number] [employer]-BS PPO [id number] SP [id number] [employer] [id number] Blue Cross/Margaret eld [id number] [facility] [id number] Commercial Insurance [id number] [facility] Other 0 [id number] Self 0 MARYANNE RUEDA [id number] SP [id number] [facility] [id number] SP [id number] MARYANNE RUEDA UNAVAILABLE SP UNAVAILABLE [facility] [id number] Commercial Insurance [id number] WC-PENDING [id number] Problems, Conditions, and Diagnoses Code Display Name Description Problem Type Effective Dates Data Source(s) R68.84 Jaw pain Jaw pain (R68.84) 03/16/2021 [id number] 03/16/2021 12:30:25 PM EDT 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[facility]) Z20.828 Contact with and (suspected) exposure to other viral communicable diseases Contact with and (suspected) exposure to other viral communicable diseases (Z20.828) 03/16/2021 [id number] 02/04/2021 06:13:35 PM E DT - 03/16/2021 12:00:00 AM EDT 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[facility]) Z20.828 Contact with and (suspected) exposure to other viral communicable diseases Contact with and (suspected) exposure to other viral communicable diseases (Z20.828) 03/16/2021 [id number] 04/22/2020 03:10:[address] - 03/16/2021 12:00:00 AM EDT 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[facility]) R68.84 Jaw pain Jaw pain (R68.84) 01/15/2021 [id number] 04/15/2018 02:21:16 PM EST - 01/15/2021 12:00:00 AM EDT 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[facility]) Surgeries/Procedures Procedure Description Date Indications Data Source(s) INFECTIOUS AGENT DETECTION COMPLETED WITHIN 2 DAYS 02/04/2021 02/04/2021 12:00:00 AM EDT 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[facility]) COVID PCR 02/04/2021 02/04/2021 12:00:00 AM EDT 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[facility]) INFECTIOUS AGENT DETECTION COMPLETED WITHIN 2 DAYS 01/15/2021 01/15/2021 12:00:00 AM EDT 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[facility]) COVID PCR 01/15/2021 01/15/2021 12:00:00 AM EDT 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[facility]) Summary provided electronically in CCDA format & reasonable certainty of receipt 12/29/2020 12:00:00 AM EDT - 12/29/2020 12:00:00 AM EDT [facility] ([facility]) counseling on treatment options includi ng Side Effects as well as Risks, Benefits and Alternatives 12/29/2020 12:00:00 AM EDT - 12/29/2020 12:00:00 AM EDT [facility] ([facility]) continue current medication 12/29/2020 1 2:00:00 AM EDT - 12/29/2020 12:00:00 AM EDT [facility] ([facility]) Summary provided electronically in CCDA format & reasonable certainty of receipt 10/13/2020 12:00:00 AM EDT - 10/13/2020 12:00:00 AM EDT [facility] ([facility]) counseling on treatment options includi ng Side Effects as well as Risks, Benefits and Alternatives 10/13/2020 12:00:00 AM EDT - 10/13/2020 12:00:00 AM EDT [facility] ([facility]) continue current medication 10/13/2020 1 2:00:00 AM EDT - 10/13/2020 12:00:00 AM EDT [facility] ([facility]) INFECTIOUS AGENT ANTIGEN DETECTION 04/28/2020 04/28/20 12:00:00 AM EST 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[facility]) INFECTIOUS AGENT ANTIGEN DETECTION 04/22/2020 04/22/20 20 12:00:00 AM EST 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[facility]) Results ID Date Data Source [id number] 02/04/2021 12:00:00 AM EDT [facility] Name Value Range Interpretation Code Description Data Jodie rce(s) Supporting Document(s) PCR NEGATIVE [facility] This lab was ordered by [facility] and reported by [facility]. ID Date Data Source [id number] 04/22/2020 12:00:00 AM EST [facility] Name Value Range Interpretation Code Description Data Jodie rce(s) Supporting Document(s) [facility]-CoV2 Rapid [facility]igen [facility] by [facility] and reported by [facility]. ID Date Data Source [id number] 04/29/2020 01:06:00 PM EST [facility] Name Value Range Interpretation Code Description Data Jodie rce(s) Supporting Document(s) SARS-CoV-2 by [facility] This lab was ordered by [facility] and reported by [facility]. ID Date Data Source [id number] 05/03/2020 08:42:37 AM EST [facility] Name Value Range Interpretation Code Description Data Jodie rce(s) Supporting Document(s) SARS COV2 SOURCE [facility] SARS COV 2 BY PCR [facility] Not Detected INTERPRETIVE INFORMATION: S ARS-CoV-2 (COVID-19) by SALUD This test should be ordered for the detection of the 2019 novel coronavirus SARS-CoV-2 in individuals who meet SARS-CoV-2 clinical and/or epidemiological criteria. The Coronavirus SARS-CoV-2 (COVID-19) by nucleic acid amplification test is for in vitro diagnostic use under the FDA Emergency Use Authorization (EUA) for US laboratories certified under CLIA to perform high complexity tests. This test has not been FDA cleared or approved. In compliance with this authorization, please visit [email or web address] for more information and to access the applicable information sheets. Not Detected results do not rule out the presence of PCR inhibitors in the patient specimen or assay specific nucleic acid in concentrations below the level of detection by the assay. Detected results are indicative of the presence of SARS-CoV-2 RNA. Due to the complexity of nucleic acid amplification methodologies, there may be a risk of false positive results. Clinical correlation with patient history and other diagnostic information is necessary to determine patient infection status. Reliable results are dependent on adequate specimen collection, transport, storage, and handling. Performed by [facility], [address] [place] [id number] [email or web address], Amanda Fong MD, Lab. Director ID Date Data Source [id number] 04/29/2020 12:00:00 AM EST 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[facility]) Name Value Range Interpretation Code Description Data Jodie rce(s) Supporting Document(s) SARS COV2 SOURCE NASOPHARYNGEAL SARS COV2 SOURC E: NASOPHARYNGEAL 04/29/2020 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[facility]) ID Date Data Source [id number] 04/28/2020 12:00:00 AM EST [facility] Name Value Range Interpretation Code Description Data Jodie rce(s) Supporting Document(s) SARS-CoV2 Rapid Antigen [facility] This lab was ordered by [facility] and reported by [facility]. Procedure Social History Code Duration Value Status Description Data Source(s ) Smoking 12/29/2020 12:00:00 AM EDT Never smoked tobacco (findi ng) completed Never smoked tobacco (finding) ZOEY ([facility]) Smoking 10/13/2020 12:00:00 AM EDT Never smoked tobacco (findi ng) completed Never smoked tobacco (finding) [facility] ([facility]) Vital Signs ID Date Data Source UNK Name Value Range Interpretation Code Description Data Source(s) Body temperature 98.3 [degF] 98.3 [degF] CHART IRISH ([facility]) Heart rate 118 /min 118 /min 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[facility] Body height 71 [in_i] 71 [in_i] 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[facility]) Body weight 190 [lb_av] 190 [lb_av] CHARTINKER ([facility]) Body mass index (BMI) [Ratio] 26.5722701769778 kg/m2 26.1488490681610 kg/m2 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[facility]) Oxygen saturation in Arterial blood by Pulse oximetry 98 % 98 % 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[facility]) Inhaled oxygen concentration 21 % 21 % [facility] Oxygen saturation in Arterial blood by Pulse oximetry 98 % 98 % [place] ([facility]) Systolic blood pressure 118 mm[Hg] 118 mm[Hg] [facility] ([facility]) Diastolic blood pressure 72 mm[Hg] 72 mm[Hg] [facility] ([facility]) Heart rate 82 /min 82 /min [facility] ([facility]) Respiratory rate 18 /min 18 /min [place] ([facility]) Body temperature 98.1 [degF] 98.1 [degF] [facility] ([facility]) Body weight 184 [lb_av] 184 [lb_av] ZOEY ([facility]) PhenX - pain, abdominal - type and intensity protocol 0 0 [facility] ([facility]) Systolic blood pressure 106 mm[Hg] 106 mm[Hg] [facility]) Diastolic blood pressure 62 mm[Hg] 62 mm[Hg] [facility] ([facility]) Body weight 194 [lb_av] 194 [lb_av] [facility] ([facility]) Body temperature 97.6 [degF] 97.6 [degF] [place] ([facility]) PhenX - pain, abdominal - type and intensity protocol 0 0 [facility] ([facility]) Heart rate 94 /min 94 /min [place] ([facility]) Oxygen saturation in Arterial blood by Pulse oximetry 97 % 97 % [place] ([facility]) Respiratory rate 18 /min 18 /min [place] ([facility]) Patient Treatment Plan of Care Planned Activity Planned Date Details Description Data Source (s) 200 ACTUAT Albuterol 0.09 MG/ACTUAT Metered Dose Inhal er [Ventolin] 10/13/2020 12:00:00 AM EDT [place] ([facility]) 60 ACTUAT formoterol fumarate 0.005 MG/A CTUAT / mometasone furoate 0.2 MG/ACTUAT Metered Dose Inhaler [Dulera] 10/13/2020 12:00:00 AM EDT [place] ([facility]) [facility]S Fluticasone Propionate 50 MCG/ACT Nasal Suspension 10/13/2020 12:00:00 AM EDT [place] ([facility]) EQ Loratadine 10 MG Oral Tablet 10/13/2020 12:00:00 AM EDT [place] ([facility]) montelukast 10 MG Oral Tablet [Singulair] 10/13/2020 12:00:00 AM ED T [place] ([facility]) 120 ACTUAT Fluticasone propionate 0.044 MG/ACTUAT Metered Dose Inhaler [Flovent] 04/30/2019 12:00:00 AM EST [facility] ([facility])
[2021-03-21] MEDS ORDERED: KETOROLAC 30 MG/ML 1ML VIAL IV ONE (13:10)
[2021-03-21] MEDS ORDERED: DULE200A INH (13:38)
[2021-03-21] MEDS ORDERED: PROAAER10 INH (13:38)
[2021-03-21] MEDS ORDERED: LORA-674 PO (13:38)
[2021-03-21] MEDS ORDERED: MONT10TA10 PO (13:38)
[2021-03-21] MEDS ORDERED: HOME MED LIST COMPLETE! XX SCH (13:40)
[2021-03-21] MEDS ORDERED: AMPICILLIN SOD/SULBACTAM SOD 3 GM in D5W MINI-BAG PLUS 100 ML IV ONE (14:00)
[2021-03-21] MEDS ORDERED: dexameTHASONE 20MG/5ML VIAL (J1100 PER 1MG) IV ONE (14:00)
[2021-03-21] MEDS ORDERED: NS 1,000 ML IV ONE (14:00)
[2021-03-21 14:04] LABS: BASO # 0.1 10^3/uL (0.0-0.2); BASO % 0.8 % (0.0-1.0); EOS # 0.3 10^3/uL (0.0-0.5); EOS % 1.4 % (0.0-3.0); HEMATOCRIT 44.6 % (42.0-52.0); HEMOGLOBIN 15.4 g/dl (13.5-17.5); LYMPH # 1.7 10^3/uL (1.5-5.0); LYMPH % 9.9 % (24.0-44.0); MEAN CORPUSCULAR HEMOGLOBIN 30.2 pg (27.0-33.0); MEAN CORPUSCULAR HGB CONC 34.5 g/dl (32.0-36.5); MEAN CORPUSCULAR VOLUME 87.5 fl (80.0-96.0); MONO # 2.1 10^3/uL (0.0-0.8); MONO % 12.3 % (2.0-8.0); NEUTROPHILS # 12.7 10^3/uL (1.5-8.5); NEUTROPHILS % 73.7 % (36.0-66.0); PLATELET COUNT, AUTOMATED 359 10^3/uL (150-450); WHITE BLOOD COUNT 17.3 10^3/uL (4.0-10.0)
[2021-03-21] MEDS ORDERED: ISOVUE-370 76% 100ML VIAL As Ordered ONE (14:21)
[2021-03-21 14:33] LABS: RSV AMPLIFICATION NEGATIVE (NEGATIVE)
--- NOTE | 2021-03-21 15:10 | REPVR ---
PROCEDURE INFORMATION: Exam: CT Neck With Contrast Exam date and time: 03/21/2021 2:23 PM Age: 26 years old Clinical indication: Mass, lump, or swelling in neck; Left; Additional info: L facial swelling, large amnt purulent d/c + abscess L upper TECHNIQUE: Imaging protocol: Computed tomography images of the neck with contrast. Radiation optimization: All CT scans at this facility use at least one of these dose optimization techniques: automated exposure control; mA and/or kV adjustment per patient size (includes targeted exams where dose is matched to clinical indication); or iterative reconstruction. Contrast material: ISOVUE 370; Contrast volume: 75 ml; Contrast route: INTRAVENOUS (IV); COMPARISON: No relevant prior studies available. FINDINGS: Paranasal sinuses: There is thick mucoperiosteal reaction in the left maxillary sinus. Nasopharynx: Unremarkable. Dental: There are dental caries involving the maxillary 1st molars bilaterally and the left 2nd maxillary molar. Oropharynx: There is enlargement of the left faucial tonsil with a 2.1 x 1.6 x 0.9 cm collection within. Hypopharynx: Unremarkable. Larynx: Normal epiglottis. Retropharyngeal space: Unremarkable. Submandibular/Parotid glands: There is slight enlargement of the left submandibular gland related to adjacent edema. Thyroid: Normal. No enlarged or calcified nodules. Lymph nodes: There are nonenlarged bilateral level 1, level 2 and left level 5 lymph nodes which may be reactive. Trachea: Visualized trachea is unremarkable. Lungs: Unremarkable as visualized. Bones/joints: No acute fracture. Soft tissues: There are small regions of gas in the superficial soft tissues of the lateral left cheek. There is a 1.6 x 2.4 x 1.3 cm superficial soft tissue collection lateral to the left buccinator muscle. There is thickening of the left pterygoid muscle and buccinator muscle. There is induration of the left facial soft tissues. There is focal fluid tracking inferior to the angle of mandible which measures 2.6 x 1.6 x 1.0 cm. Other findings: There is thickening the left platysmas. IMPRESSION: 1. There are multiple collections, including within the left faucial tonsil, inferior to the left angle of mandible, and in the left facial soft tissues superficial to the buccinator muscle consistent with multiple abscesses. There is adjacent soft tissue swelling. 2. There are bilateral mandibular dental caries. Electronically signed by: Alvaro Rodrigues On 03/21/2021 15:10:05 PM
[2021-03-21 15:14] LABS: ERYTHROCYTE SEDIMENTATION RATE 40 mm/hr (0-15)
[2021-03-21] MEDS ORDERED: ALBUTEROL 90 MCG/ACT 8GM HFA INHALER INH PRN (16:25)
[2021-03-21] MEDS ORDERED: LIDOCAINE 2% W/ EPINEPHRINE 1.7 ML DENTAL INJ As Ordered ONE (16:37)
[2021-03-21] MEDS ORDERED: LIDOCAINE W/EPINEPHRINE 1% 20ML VIAL As Ordered ONE (16:43)
--- OUTSIDE RECORDS SUMMARY | 2021-03-21 16:46 | CCD ---
Author Author [facility] Organization [facility] Address Unknown Phone Unavailable Care Team Providers Care Practicing Urologist Name Role Phone Douglas Gee Kisha EMBOSSING MACHINE OPERATOR Unavailable Unavailable Potter, M Kisha EMBOSSING MACHINE OPERATOR Unavailable Unavailable Potter, M Kisha EMBOSSING MACHINE OPERATOR Unavailable Unavailable Potter, M Kisha EMBOSSING MACHINE OPERATOR Unavailable Unavailable Potter, M Kisha EMBOSSING MACHINE OPERATOR Unavailable Unavailable Potter, M Kisha EMBOSSING MACHINE OPERATOR Unavailable Unavailable Potter, M Kisha EMBOSSING MACHINE OPERATOR Unavailable Unavailable Potter, M Kisha EMBOSSING MACHINE OPERATOR Unavailable Unavailable Potter, M Kisha EMBOSSING MACHINE OPERATOR Unavailable Unavailable Potter, M Kisha EMBOSSING MACHINE OPERATOR Unavailable Unavailable Potter, M Kisha EMBOSSING MACHINE OPERATOR Unavailable Unavailable Potter, M Kisha EMBOSSING MACHINE OPERATOR Unavailable Unavailable Potter, M Kisha EMBOSSING MACHINE OPERATOR Unavailable Unavailable Potter, M Kisha EMBOSSING MACHINE OPERATOR Unavailable Unavailable Potter, M Kisha EMBOSSING MACHINE OPERATOR Unavailable Unavailable Potter, M Kisha EMBOSSING MACHINE OPERATOR Unavailable Unavailable Potter, M Kisha EMBOSSING MACHINE OPERATOR Unavailable Unavailable Potter, M Kisha EMBOSSING MACHINE OPERATOR Unavailable Unavailable Potter, M Kisha EMBOSSING MACHINE OPERATOR Unavailable Unavailable Potter, M Kisha EMBOSSING MACHINE OPERATOR Unavailable Unavailable Potter, M Kisha EMBOSSING MACHINE OPERATOR Unavailable Unavailable Potter, M Kisha EMBOSSING MACHINE OPERATOR Unavailable Unavailable Potter, M Kisha EMBOSSING MACHINE OPERATOR Unavailable Unavailable Potter, M Kisha EMBOSSING MACHINE OPERATOR Unavailable Unavailable Potter, M Kisha EMBOSSING MACHINE OPERATOR Unavailable Unavailable Potter, M Kisha EMBOSSING MACHINE OPERATOR Unavailable Unavailable Potter, M Kisha EMBOSSING MACHINE OPERATOR Unavailable Unavailable Potter, M Kisha EMBOSSING MACHINE OPERATOR Unavailable Unavailable Potter, M Kisha EMBOSSING MACHINE OPERATOR Unavailable Unavailable Potter, M Kisha EMBOSSING MACHINE OPERATOR Unavailable Unavailable Potter, M Kisha EMBOSSING MACHINE OPERATOR Unavailable Unavailable Potter, M Kisha EMBOSSING MACHINE OPERATOR Unavailable Unavailable Potter, M Kisha EMBOSSING MACHINE OPERATOR Unavailable Unavailable Potter, M Kisha EMBOSSING MACHINE OPERATOR Unavailable Unavailable Potter, M Kisha EMBOSSING MACHINE OPERATOR Unavailable Unavailable Potter, M Kisha EMBOSSING MACHINE OPERATOR Unavailable Unavailable Potter, M Kisha EMBOSSING MACHINE OPERATOR Unavailable Unavailable Potter, M Kisha EMBOSSING MACHINE OPERATOR Unavailable Unavailable Potter, M Kisha EMBOSSING MACHINE OPERATOR Unavailable Unavailable Potter, M Kisha EMBOSSING MACHINE OPERATOR Unavailable Unavailable Potter, M Kisha EMBOSSING MACHINE OPERATOR Unavailable Unavailable Potter, M Kisha EMBOSSING MACHINE OPERATOR Unavailable Unavailable Potter, M Kisha EMBOSSING MACHINE OPERATOR Unavailable Unavailable Potter, M Kisha EMBOSSING MACHINE OPERATOR Unavailable Unavailable Potter, M Kisha EMBOSSING MACHINE OPERATOR Unavailable Unavailable Potter, M Kisha EMBOSSING MACHINE OPERATOR Unavailable Unavailable Potter, M Kisha EMBOSSING MACHINE OPERATOR Unavailable Unavailable Potter, M Kisha EMBOSSING MACHINE OPERATOR Unavailable Unavailable Potter, M Kisha EMBOSSING MACHINE OPERATOR Unavailable Unavailable Potter, M Kisha EMBOSSING MACHINE OPERATOR Unavailable Unavailable Potter, M Kisha EMBOSSING MACHINE OPERATOR Unavailable Unavailable Potter, M Kisha EMBOSSING MACHINE OPERATOR Unavailable Unavailable Potter, M Ksiha EMBOSSING MACHINE OPERATOR Unavailable Unavailable Potter, M Kisha EMBOSSING MACHINE OPERATOR Unavailable Unavailable Potter, M Kisha EMBOSSING MACHINE OPERATOR Unavailable Unavailable Potter, M Kisha EMBOSSING MACHINE OPERATOR Unavailable Unavailable Potter, M Kisha EMBOSSING MACHINE OPERATOR Unavailable Unavailable Potter, M Kisha EMBOSSING MACHINE OPERATOR Unavailable Unavailable Kaushal, I Alia EMBOSSING MACHINE OPERATOR Unavailable Unavailable Kaushal, I Alia EMBOSSING MACHINE OPERATOR Unavailable Unavailable Kaushal, I Alia EMBOSSING MACHINE OPERATOR Unavailable Unavailable Kaushal, I Alia EMBOSSING MACHINE OPERATOR Unavailable Unavailable Kaushal, I Alia EMBOSSING MACHINE OPERATOR Unavailable Unavailable Kaushal, I Alia EMBOSSING MACHINE OPERATOR Unavailable Unavailable Kaushal, I Alia EMBOSSING MACHINE OPERATOR Unavailable Unavailable Kaushal, I Alia EMBOSSING MACHINE OPERATOR Unavailable Unavailable Kaushal, I Alia EMBOSSING MACHINE OPERATOR Unavailable Unavailable Kaushal, I Alia EMBOSSING MACHINE OPERATOR Unavailable Unavailable Kaushal, I Alia EMBOSSING MACHINE OPERATOR Unavailable Unavailable Kaushal, I Alia EMBOSSING MACHINE OPERATOR Unavailable Unavailable Kaushal, I Alia EMBOSSING MACHINE OPERATOR Unavailable Unavailable Kaushal, I Alia EMBOSSING MACHINE OPERATOR Unavailable Unavailable Kaushal, I Alia EMBOSSING MACHINE OPERATOR Unavailable Unavailable Kaushal, I Alia EMBOSSING MACHINE OPERATOR Unavailable Unavailable Kaushal, I Alia EMBOSSING MACHINE OPERATOR Unavailable Unavailable Kaushal, I Alia EMBOSSING MACHINE OPERATOR Unavailable Unavailable Kaushal, I Alia EMBOSSING MACHINE OPERATOR Unavailable Unavailable Kaushal, I Alia EMBOSSING MACHINE OPERATOR Unavailable Unavailable Kaushal, I Alia EMBOSSING MACHINE OPERATOR Unavailable Unavailable Kaushal, I Alia EMBOSSING MACHINE OPERATOR Unavailable Unavailable Kaushal, I Alia EMBOSSING MACHINE OPERATOR Unavailable Unavailable Kaushal, I Alia EMBOSSING MACHINE OPERATOR Unavailable Unavailable Kaushal, I Alia EMBOSSING MACHINE OPERATOR Unavailable Unavailable Kaushal, I Alia EMBOSSING MACHINE OPERATOR Unavailable Unavailable Kaushal, I Alia EMBOSSING MACHINE OPERATOR Unavailable Unavailable Kaushal, I Alia EMBOSSING MACHINE OPERATOR Unavailable Unavailable Kaushal, I Alia EMBOSSING MACHINE OPERATOR Unavailable Unavailable Kaushal, I Alia EMBOSSING MACHINE OPERATOR Unavailable Unavailable Kaushal, I Alia EMBOSSING MACHINE OPERATOR Unavailable Unavailable Kaushal, I Alia EMBOSSING MACHINE OPERATOR Unavailable Unavailable Kaushal, I Alia EMBOSSING MACHINE OPERATOR Unavailable Unavailable Kaushal, I Alia EMBOSSING MACHINE OPERATOR Unavailable Unavailable Kaushal, I Alia EMBOSSING MACHINE OPERATOR Unavailable Unavailable Kaushal, I Alia EMBOSSING MACHINE OPERATOR Unavailable Unavailable Kaushal, I Alia EMBOSSING MACHINE OPERATOR Unavailable Unavailable Kaushal, I Alia EMBOSSING MACHINE OPERATOR Unavailable Unavailable Kaushal, I Alia EMBOSSING MACHINE OPERATOR Unavailable Unavailable Kaushal, I Alia EMBOSSING MACHINE OPERATOR Unavailable Unavailable Kaushal, I Alia EMBOSSING MACHINE OPERATOR Unavailable Unavailable Kaushal, I Alia EMBOSSING MACHINE OPERATOR Unavailable Unavailable Kaushal, I Alia EMBOSSING MACHINE OPERATOR Unavailable Unavailable Kaushal, I Alia EMBOSSING MACHINE OPERATOR Unavailable Unavailable Kaushal, I Alia EMBOSSING MACHINE OPERATOR Unavailable Unavailable Kaushal, I Alia EMBOSSING MACHINE OPERATOR Unavailable Unavailable Kaushal, I Alia EMBOSSING MACHINE OPERATOR Unavailable Unavailable Kaushal, I Alia EMBOSSING MACHINE OPERATOR Unavailable Unavailable Kaushal, I Alia EMBOSSING MACHINE OPERATOR Unavailable Unavailable Kaushal, I Alia EMBOSSING MACHINE OPERATOR Unavailable Unavailable Kaushal, I Alia EMBOSSING MACHINE OPERATOR Unavailable Unavailable Kaushal, I Alia EMBOSSING MACHINE OPERATOR Unavailable Unavailable Kaushal, I Alia EMBOSSING MACHINE OPERATOR Unavailable Unavailable Kaushal, I Alia EMBOSSING MACHINE OPERATOR Unavailable Unavailable Kaushal, I Alia EMBOSSING MACHINE OPERATOR Unavailable Unavailable Kaushal, I Alia EMBOSSING MACHINE OPERATOR Unavailable Unavailable Kaushal, I Alia EMBOSSING MACHINE OPERATOR Unavailable Unavailable Kaushal, I Alia EMBOSSING MACHINE OPERATOR Unavailable Unavailable Kaushal, I Alia EMBOSSING MACHINE OPERATOR Unavailable Unavailable Kaushal, I Alia EMBOSSING MACHINE OPERATOR Unavailable Unavailable Kaushal, I Alia EMBOSSING MACHINE OPERATOR Unavailable Unavailable Kaushal, I Alia EMBOSSING MACHINE OPERATOR Unavailable Unavailable Kaushal, I Alia EMBOSSING MACHINE OPERATOR Unavailable Unavailable Kaushal, I Alia EMBOSSING MACHINE OPERATOR Unavailable Unavailable Kaushal, I Alia EMBOSSING MACHINE OPERATOR Unavailable Unavailable Kaushal, I Alia EMBOSSING MACHINE OPERATOR Unavailable Unavailable Kaushal, I Alia EMBOSSING MACHINE OPERATOR Unavailable Unavailable Kaushal, I Alia EMBOSSING MACHINE OPERATOR Unavailable Unavailable Kaushal, I Alia EMBOSSING MACHINE OPERATOR Unavailable Unavailable Kaushal, I Alia EMBOSSING MACHINE OPERATOR Unavailable Unavailable Kaushal, I Alia EMBOSSING MACHINE OPERATOR Unavailable Unavailable Kaushal, I Alia EMBOSSING MACHINE OPERATOR Unavailable Unavailable Kaushal, I Alia EMBOSSING MACHINE OPERATOR Unavailable Unavailable Kaushal, I Alia EMBOSSING MACHINE OPERATOR Unavailable Unavailable Kaushal, I Alia EMBOSSING MACHINE OPERATOR Unavailable Unavailable SHEPPARD, W LUCIO PA Unavailable [...] by Article 27-F of the [facility] Public Health law. If you continue you may have access to information: Regarding HIV / AIDS; Provided by facilities licensed or operated by the [facility] Office of Mental Health; or Provided by the [facility] Office for People With Developmental Disabilities. If such information is present, then the following [facility] mandated warning applies: This information has [...] law may result in a fine or longterm sentence or both. A general authorization for the release of medical or other information is NOT sufficient authorization for further disc losure. 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 Data Source(s) packet given Pt Bill of Rights, Priv Prac, Ad Dir completed packet given Pt Bill of Rights, Priv Prac, Ad Dir [facility] ([facility]) Note: Pt declined AD packet Allergies and Adverse Reactions Type Description Substance Reaction Status Data Source(s ) Allergy to substance No Known Allergies No known allergies (situation ) [facility] ([facility]) Allergy to substance No Known Allergies No known allergies (situation ) [facility] [place] Encounters Encounter Providers Location Date Indications Data Source(s ) OFFICE/OUTPATIENT VISIT, EST 03/16/2021Outpatient Attender: LUCIO POST 03/16/2021 12:30:25 PM EDT 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 OutpatientOFFICE/OUTPATIENT VISIT,EST 02/04/2021 Attender: Анна Gee NP 02/04/2021 06:13:35 PM EDT 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[facility]) OFFICE/OUTPATIENT VISIT,EST 01/15/2021Outpatient Attender: FABIANA POST 01/15/2021 05:16:04 PM EDT 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[facility]) <td ID="encounterTypeDescriptionID0">Chr onic Disease Follow-up</td><td>Alia Easley NP</td><td>[facility]</td><td>12/29/2020</td><td>5:59PM</td><td>6:19PM</td><td><content ID="encounterDiagnosisID0-0">Asthma Mild Persistent</content></td>Outpatient Attender: Alia Easley NP [facility] 12/29/2020 05:59:00 PM EDT - 12/29/2020 06:19:23 PM EDT Asthma Mild Persistent [facility] ([facility]) Asthma Mild Persistent Outpatient<td ID="encounterTypeDescripti onID0">Chronic Disease Follow- up</td><td>Alia Easley NP</td><td>[facility]</td><td>10/13/2020</td><td>6:08PM</td><td>6:43PM</td><td><content ID="encounterDiagnosisID0-0">Kyphoscoliosis</content>, <content ID="encounterDiagnosisID0-1">Visit For: Routine Adult H&p Without Abnormal Findings</content>, <content ID="encounterDiagnosisID0-2">Asthma Moderate Persistent</content></td> Attender: Alia Easley NP [facility] 2020 06:08:00 PM EDT - 10/13/2020 06:43:43 [...] tablet orally Every 12 hours 03/16/2021 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[facility]) 875 mg 03/16/2021 12:00:00 AM [...] DAY RINSE MOUTH AFTER USE SOLD: 10/19/2020 [facility] montelukast 10 MG Oral Tablet MONTELUKAST SODIUM [...] Aerosol Solution 10/13/2020 12:00:00 AM EDT active [id number] 200 ACTUAT albuter ol 0.09 MG/ACTUAT Metered [...] 0.2 MG/ACTUAT Metered Dose Inhaler [Dulera] [facility] ([facility]) montelukast 10 MG Oral Tablet MONTELUKAST SODIUM [...] 0.044 MG/ACTUAT Metered Dose Inhaler [Flovent] [facility] Amoxicillin 500 MG Oral Tablet amoxicillin 500 mg tabl et amoxicillin 500 mg tablet 04/15/2018 12:00:00 AM EST 1 completed 01/15/2021 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[facility]) Lidocaine Hydrochloride 20 MG/ML Mucous Membrane Topical Solution Lidocaine Viscous 2 % mucosal solution Lidocaine Viscous 2 % mucosal solution 04/15/2018 12:00:00 AM EST completed 2020 [facility] ([facility]) Ketorolac Tromethamine 10 MG Oral Tablet ketorolac 10 mg tablet ketorolac 10 mg tablet 04/15/2018 12:00:00 AM EST 1 completed 01/15/2021 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[facility]) 120 ACTUAT Fluticasone propionate 0.11 M G/ACTUAT Metered Dose Inhaler [Flovent] Flovent HFA 110 mcg/actuation aerosol inhaler Flovent HFA 110 mcg/actuation aerosol inhaler 07/30/2015 12:00:00 AM EST 2 complet ed 01/15/2021 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[facility]) Insurance Providers Payer name Policy type / Coverage type Policy ID Covered libertarian ID Covered libertarian's relationship to engle Policy Engle Plan Information Medicaid [facility] Other 02 [id number] Self 02 Medicaid [facility] Other 02 [id number] Self 02 NF PENDING UNAVAILABLE SP UNAVAIL ABLE MEDICAID [facility] [id number] SP [id number] [place] [facility] [place] Other 0 [id number] Self 0 [place] Other 0 [id number] Self 0 [place] Other 0 [id number] Self 0 OLIVER [id number] SP [id number] SELF PAY [facility] Other 0 [id number] Self 0 [place] [facility] [place] [facility] [id number] Commercial Insurance [place] [facility] [place] [employer] Medicaid [id number] Self [employer]ERTY [employer] NO FAULT [id number] SP [id number] [facility] ATTN:JERRY [id number] SP [id number] [facility] MEDICAID [id number] SP [id number] [facility] MEDICAID [id number] SP [id number] [employer]LL[employer] BC-BS PPO [id number] SP [id number] [employer] Blue Cross [id number] Blue Cross/Margaret eld [id number] [facility] [id number] Commercial Insurance [id number] [facility] Other 0 [id number] Self 0 MARYANNE RUEDA [id number] SP [id number] [facility] [id number] SP [id number] MARYANNE RUEDA UNAVAILABLE SP UNAVAILABLE [place] [facility] [id number] Commercial Insurance [id number] WC-PENDING [id number] Problems, Conditions, and Diagnoses Code Display Name Description Problem Type Effective Dates Data Source(s) R68.84 Jaw pain Jaw pain (R68.84) 03/16/2021 [id number] 03/16/2021 12:30:25 PM EDT 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[facility]) Z20.828 Contact with and (suspected) exposure to other viral communicable diseases Contact with and (suspected) exposure to other viral communicable diseases (Z20.828) 03/16/2021 [id number] 02/04/2021 06:13:35 PM E DT - 03/16/2021 12:00:00 AM EDT 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[facility]) Z20.828 Contact with and (suspected) exposure to other viral communicable diseases Contact with and (suspected) exposure to other viral communicable diseases (Z20.828) 03/16/2021 [id number] 04/22/2020 03:10:[address] - 03/16/2021 12:00:00 AM EDT 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[facility]) R68.84 Jaw pain Jaw pain (R68.84) 01/15/2021 [id number] 04/15/2018 02:21:16 PM EST - 01/15/2021 12:00:00 AM EDT 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[facility]) Surgeries/Procedures Procedure Description Date Indications Data Source(s) INFECTIOUS AGENT DETECTION COMPLETED WITHIN 2 DAYS 02/04/2021 02/04/2021 12:00:00 AM EDT 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[facility]) COVID PCR 02/04/2021 02/04/2021 12:00:00 AM EDT 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[facility]) INFECTIOUS AGENT DETECTION COMPLETED WITHIN 2 DAYS 01/15/2021 01/15/2021 12:00:00 AM EDT 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[facility]) COVID PCR 01/15/2021 01/15/2021 12:00:00 AM EDT 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[facility]) Summary provided electronically in CCDA format & reasonable certainty of receipt 12/29/2020 12:00:00 AM EDT - 12/29/2020 12:00:00 AM EDT [facility] ([facility]) counseling on treatment options includi ng Side Effects as well as Risks, Benefits and Alternatives 12/29/2020 12:00:00 AM EDT - 12/29/2020 12:00:00 AM EDT [facility] ([facility]) continue current medication 12/29/2020 1 2:00:00 AM EDT - 12/29/2020 12:00:00 AM EDT [facility] ([facility]) Summary provided electronically in CCDA format & reasonable certainty of receipt 10/13/2020 12:00:00 AM EDT - 10/13/2020 12:00:00 AM EDT [facility] ([facility]) counseling on treatment options includi ng Side Effects as well as Risks, Benefits and Alternatives 10/13/2020 12:00:00 AM EDT - 10/13/2020 12:00:00 AM EDT [facility] ([facility]) continue current medication 10/13/2020 1 2:00:00 AM EDT - 10/13/2020 12:00:00 AM EDT [facility] ([facility]) INFECTIOUS AGENT ANTIGEN DETECTION 04/28/2020 04/28/20 12:00:00 AM EST 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[facility]) INFECTIOUS AGENT ANTIGEN DETECTION 04/22/2020 04/22/20 20 12:00:00 AM EST 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[facility]) Results ID Date Data Source [id number] 02/04/2021 12:00:00 AM EDT [facility] Name Value Range Interpretation Code Description Data Jodie rce(s) Supporting Document(s) PCR NEGATIVE [facility] This lab was ordered by [facility] and reported by [facility]. ID Date Data Source [id number] 04/22/2020 12:00:00 AM EST [facility] Name Value Range Interpretation Code Description Data Jodie rce(s) Supporting Document(s) [facility]2 [facility] by [facility] and reported by [facility]. ID Date Data Source [id number] 04/29/2020 01:06:00 PM EST [facility] Name Value Range Interpretation Code Description Data Jodie rce(s) Supporting Document(s) SARS-CoV-2 by [facility] This lab was ordered by [facility] and reported by [facility]. ID Date Data Source [id number] 05/03/2020 08:42:37 AM EST [facility] Name Value Range Interpretation Code Description Data Jodie rce(s) Supporting Document(s) SARS COV2 SOURCE [facility] SARS COV 2 BY PCR [facility] Not Detected INTERPRETIVE INFORMATION: S ARS-CoV-2 [...] In compliance with this authorization, please visit [email or web address] for more information and to access the [...] collection, transport, storage, and handling. Performed by [facility], [address] [place] [id number] [email or web address], Amanda Fong MD, Lab. Director ID Date Data Source [id number] 04/29/2020 12:00:00 AM EST 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[facility]) Name Value Range Interpretation Code Description Data Jodie rce(s) Supporting Document(s) SARS COV2 SOURCE NASOPHARYNGEAL SARS COV2 SOURC E: NASOPHARYNGEAL 04/29/2020 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[facility]) ID Date Data Source [id number] 04/28/2020 12:00:00 AM EST [facility] Name Value Range Interpretation Code Description Data Jodie rce(s) Supporting Document(s) SARS-CoV2 Rapid Antigen [facility] This lab was ordered by [facility] and reported by [facility]. 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 ([facility]) Heart rate 118 /min 118 /min 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[facility]) Body height 71 [in_i] 71 [in_i] 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[facility]) Body weight 190 [lb_av] 190 [lb_av] CHARTWIKER ([facility]) Body mass index (BMI) [Ratio] 26.0738677784611 kg/m2 26.6914888213519 kg/m2 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[facility]) Oxygen saturation in Arterial blood by Pulse oximetry 98 % 98 % 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[facility]) Inhaled oxygen concentration 21 % 21 % [facility]) Systolic blood pressure 118 mm[Hg] 118 mm[Hg] G [place] ([facility]) Diastolic blood pressure 72 mm[Hg] 72 mm[Hg] [facility] ([facility]) Heart rate 82 /min 82 /min [facility] ([facility]) Respiratory rate 18 /min 18 /min [facility] ([facility]) Body temperature 98.1 [degF] 98.1 [degF] [place] ([facility]) Body weight 184 [lb_av] 184 [lb_av] [facility] ([facility]) PhenX - pain, abdominal - type and intensity protocol 0 0 [facility] ([facility]) Oxygen saturation in Arterial blood by Pulse oximetry 98 % 98 % [facility] ([facility]) Body weight 194 [lb_av] 194 [lb_av] [facility] ([facility]) Systolic blood pressure 106 mm[Hg] 106 mm[Hg] [facility] PhenX - pain, abdominal - type and intensity protocol 0 0 [facility] ([facility]) Diastolic blood pressure 62 mm[Hg] 62 mm[Hg] [facility] ([facility]) Body temperature 97.6 [degF] 97.6 [degF] [facility] ([facility]) Heart rate 94 /min 94 /min [facility] ([facility]) Oxygen saturation in Arterial blood by Pulse oximetry 97 % 97 % [facility] ([facility]) Respiratory rate 18 /min 18 /min [facility] ([facility]) Patient Treatment Plan of Care Planned Activity Planned Date Details Description Data Source (s) 200 ACTUAT Albuterol 0.09 MG/ACTUAT Metered Dose Inhal er [Ventolin] 10/13/2020 12:00:00 AM EDT [facility] ([facility]) 60 ACTUAT formoterol fumarate 0.005 MG/A CTUAT / mometasone furoate 0.2 MG/ACTUAT Metered Dose Inhaler [Dulera] 10/13/2020 12:00:00 AM EDT [facility] ([facility]) [facility] Fluticasone Propionate 50 MCG/ACT Nasal Suspension 10/13/2020 12:00:00 AM EDT [facility] ([facility]) EQ Loratadine 10 MG Oral Tablet 10/13/2020 12:00:00 AM EDT [facility] ([facility]) montelukast 10 MG Oral Tablet [Singulair] 10/13/2020 12:00:00 AM ED T [facility] ([facility]) 120 ACTUAT Fluticasone propionate 0.044 MG/ACTUAT Metered Dose Inhaler [Flovent] 04/30/2019 12:00:00 AM EST [facility] ([facility])
--- NOTE | 2021-03-21 17:14 | HPEPDOC ---
[facility] Medical History & Physical Date of Admission Mar 21, 2021 Date of Service: Mar 21, 2021 Attending Physician: KIRSTIE HURST MD History and Physical CHIEF COMPLAINT: Dental pain with swelling HISTORY OF PRESENT ILLNESS: 26 yo M with a history of asthma and seasonal allergies who developed dental pain on 03/15 and on 03/16 was prescribed amoxicillin. He represented to his provider on 03/18 and antibiotics were escalated to clindamycin but unfortunately his pain and dental infection did not remit, instead he developed worsening L facial swelling and today he could not swallow his medication and could not clear his own saliva but not tolerate much else, so he presented to the ED. In the ED, he had a low grade temp to 100.2, was otherwise normotensive. Workup was notable for leukocytosis to 17.3, ESR 40, CRP 28, na 135, K 3.[address] neck revealed multiple collections, including within the left faucial tonsil, inferior to the left angle of mandible, and in the left facial soft tissues superficial to the buccinator muscle consistent with multiple abscesses. ED consulted Dr. Clark of oral surgery who will be taking him to the OR at 5PM for multiple abscess collections, including within the left faucial tonsil, inferior to the left angle of mandible, and in the left facial soft tissues superficial to the buccinator muscle. In the meantime, he was started on toradol for pain and IV unasyn. I am now admitting him to medicine for dental abscesses with oral surgery on consult. ROS: 10 point ROS was negative except otherwise as noted in HPI Past Medical History: Asthma Seasonal allergies Past Surgical History: None Social History: No smoking No illicit drug use No alcohol Physical examination: Vitals: see below General: NAD, swollen left cheek and neck HEENT: NCAT, swollen L neck and cheek. EOMI, MMM, poor dentition Did not complete exam as he was wheeled to the OR Labs and Imaging: Reviewed Neck CT: Paranasal sinuses: There is thick mucoperiosteal reaction in the left maxillary sinus. Nasopharynx: Unremarkable. Dental: There are dental caries involving the maxillary 1st molars bilaterally and the left 2nd maxillary molar. Oropharynx: There is enlargement of the left faucial tonsil with a 2.1 x 1.6 x 0.9 cm collection within. Hypopharynx: Unremarkable. Larynx: Normal epiglottis. Retropharyngeal space: Unremarkable. Submandibular/Parotid glands: There is slight enlargement of the left submandibular gland related to adjacent edema. Thyroid: Normal. No enlarged or calcified nodules. Lymph nodes: There are nonenlarged bilateral level 1, level 2 and left level 5 lymph nodes which may be reactive. Trachea: Visualized trachea is unremarkable. Lungs: Unremarkable as visualized. Bones/joints: No acute fracture. Soft tissues: There are small regions of gas in the superficial soft tissues of the lateral left cheek. There is a 1.6 x 2.4 x 1.3 cm superficial soft tissue collection lateral to the left buccinator muscle. There is thickening of the left pterygoid muscle and buccinator muscle. There is induration of the left facial soft tissues. There is focal fluid tracking inferior to the angle of mandible which measures 2.6 x 1.6 x 1.0 cm. Other findings: There is thickening the left platysmas. IMPRESSION: 1. There are multiple collections, including within the left faucial tonsil, inferior to the left angle of mandible, and in the left facial soft tissues superficial to the buccinator muscle consistent with multiple abscesses. There is adjacent soft tissue swelling. 2. There are bilateral mandibular dental caries. Assessment: 26 yo M with a history of asthma and seasonal allergies who is being admitted for multiple dental abscesses with oral surgery on consult. Multiple dental abscesses: -Imaging as noted above -being taken to OR at 5PM by oral surgeon -liu 3g Q6H -NPO -will place on fluids Asthma: -continue home mdi's and montelukast DVT ppx: TEDs. Lovenox to start tomorrow AM Vital Signs Vital Signs Date Time Temp Pulse Resp B/P (MAP) Pulse Ox O2 Delivery O2 Flow Rate FiO2 03/21/21 16:11 97.2 98 16 119/73 (88) 97 Room Air Laboratory Data Labs 24H Laboratory Tests 2 03/21/21 13:21: Immature Granulocyte % (Auto) 1.9, Neutrophils (%) (Auto) 73.7H, Lymphocytes (%) (Auto) 9.9L, Monocytes (%) (Auto) 12.3H, Eosinophils (%) (Auto) 1.4, Basophils (%) (Auto) 0.8, Neutrophils # (Auto) 12.7H, Lymphocytes # (Auto) 1.7, Monocytes # (Auto) 2.1H, Eosinophils # (Auto) 0.3, Basophils # (Auto) 0.1, Nucleated Red Blood Cells % (auto) 0.0, Erythrocyte Sedimentation Rate 40H, Lactic Acid Level 1.0, C-Reactive Protein, Quantitative 28.00H, Coronavirus (COVID-19)(PCR) NEGATIVE, Influenza Type A (RT-PCR) NEGATIVE, Influenza Type B (RT-PCR) NEGATIVE, Respiratory Syncytial Virus (PCR) NEGATIVE 03/21/21 14:00: POC Glucose (Misc Panel) 123H, POC Sodium (Misc Panel) 135L, POC Potassium (Misc Panel) 3.8, POC Chloride (Misc Panel) 99, POC Total CO2 (Misc Panel) 24.0, POC Blood Urea Nitrogen (Misc Panel 20, POC Ionized Calcium (Misc Panel) 4.0L, POC Creatinine (Misc Panel) 0.9, POC Hematocrit (Misc Panel) 48.0 CBC/BMP Laboratory Tests 03/21/21 13:21 Microbiology Microbiology 03/21/21 Gram Stain, Received Pending 03/21/21 Wound Culture, Received Pending 03/21/21 Blood Culture, Received Pending 03/21/21 Blood Culture, Received Pending Home Medications Scheduled Amoxicillin (Amoxicillin) 875 Mg Tablet, 875 MG PO BID Clindamycin HCl (Clindamycin HCl) 300 Mg Capsule, 300 MG PO TID Loratadine (Loratadine) 10 Mg Tablet, 10 MG PO DAILY Mometasone/Formoterol (Dulera 200 Mcg/5 Mcg Inhaler) 13 Gm Hfa.aer.ad, 2 PUFF INH BID Montelukast Sodium (Montelukast Sodium) 10 Mg Tablet, 10 MG PO DAILY Scheduled PRN Albuterol Sulfate (Proair Hfa) 8.5 Gm Hfa.aer.ad, 2 PUFF INH Q4H PRN for SOB/WHEEZING Allergies Coded Allergies: No Known Allergies (Unverified , 03/21/21) A-FIB/CHADSVASC A-FIB History Current/History of A-Fib/PAF?: No Current PO Anticoag Therapy: No Age/Risk Factor Scoring CHADSVASC: CHADSVASC Response (Comments) Value Age Risk Factor Age < 65 years old 0 Gender Risk Factor Male 0 Hx of CHF No 0 Hx of HTN No 0 Hx of Stroke/TIA/or VTE No 0 Hx of Diabetes No 0 Hx of Vascular Disease No 0 Total 0 Treatment Treatment ordered: NONE Reason Anticoagulant not given: Not indicated/[id number] KIRSTIE HURST MD Mar 21, 2021 16:48
[2021-03-21] MEDS ORDERED: fentaNYL 250 MCG/5 ML INJECTION (J3010) As Ordered ONE (17:17)
[2021-03-21] MEDS ORDERED: propofoL 200 MG/20 ML VIAL As Ordered ONE (17:17)
[2021-03-21] MEDS ORDERED: SUCCINYLCHOLINE 100 MG/5 ML SYRINGE (J0330) As Ordered ONE (17:17)
[2021-03-21] MEDS ORDERED: dexameTHASONE 4 MG/ML 1ML VIAL (J1100 PER 1MG) As Ordered ONE (17:17)
[2021-03-21] MEDS ORDERED: ROCURONIUM BROMIDE 50 MG/5 ML VIAL As Ordered ONE (17:17)
[2021-03-21] MEDS ORDERED: MIDAZOLAM INJ 2MG/2ML VIAL (J2250 PER 1MG) As Ordered ONE (17:17)
[2021-03-21] MEDS ORDERED: ONDANSETRON 4MG/2ML VIAL As Ordered ONE (17:17)
[2021-03-21] MEDS ORDERED: LIDOCAINE 2% 100MG/5ML SDV (FOR ANES.) As Ordered ONE (17:17)
[2021-03-21] MEDS ORDERED: ACETAMINOPHEN 1000MG 100ML IV BTL (OFIRMEV) (J0131 PER 10MG) As Ordered ONE (17:20)
[2021-03-21] MEDS ORDERED: SUGAMMADEX SODIUM 500 MG/5 ML VIAL (BRIDION) As Ordered ONE (17:21)
[2021-03-21] MEDS ORDERED: LR 1,000 ML IV SCH (18:35)
[2021-03-21] MEDS ORDERED: oxyCODONE 5MG TAB PO PRN (18:35)
[2021-03-21] MEDS ORDERED: ONDANSETRON 4MG/2ML VIAL IV PRN (18:35)
[2021-03-21] MEDS ORDERED: fentaNYL 100 MCG/2 ML INJECTION (J3010) IV PRN (18:35)
[2021-03-21 19:50] VITALS: BP 133/87
[2021-03-21] MEDS: SYMBICORT 80/4.5MCG INHALER 6GM INH SCH (20:00)
[2021-03-21 20:20] VITALS: BP 128/84
[2021-03-21] MEDS: AMPICILLIN SOD/SULBACTAM SOD 3 GM in D5W MINI-BAG PLUS 100 ML IV SCH (20:31)
[2021-03-21 20:50] VITALS: BP 129/83
[2021-03-21] MEDS: MAALOX 30 ML SUSP *UDC PO PRN (21:46)
[2021-03-21 21:50] VITALS: BP 129/82
[2021-03-21 22:50] VITALS: BP 125/80
[2021-03-21] MEDS: LR 1,000 ML IV SCH (23:35)
[2021-03-21 23:50] VITALS: BP 126/77
[2021-03-22 00:50] VITALS: BP 114/63
[2021-03-22] MEDS: AMPICILLIN SOD/SULBACTAM SOD 3 GM in D5W MINI-BAG PLUS 100 ML IV SCH ×4 (02:13→20:30)
[2021-03-22 06:00] VITALS: BP 126/89
[2021-03-22 07:28] LABS: ALBUMIN 2.3 GM/DL (3.2-5.2); ALT/SGPT 132 U/L (12-78); BILIRUBIN,TOTAL 0.7 MG/DL (0.2-1.0); BLOOD UREA NITROGEN 16 MG/DL (7-18); CALCIUM LEVEL 8.6 MG/DL (8.5-10.1); CARBON DIOXIDE LEVEL 27 MEQ/L (21-32); CHLORIDE LEVEL 103 MEQ/L (98-107); CREATININE FOR GFR 0.67 MG/DL (0.70-1.30); GLOMERULAR FILTRATION RATE > 60.0 (>60); GLUCOSE, FASTING 139 MG/DL (70-100); POTASSIUM SERUM 4.5 MEQ/L (3.5-5.1); SODIUM LEVEL 136 MEQ/L (136-145); TOTAL PROTEIN 6.5 GM/DL (6.4-8.2)
[2021-03-22] MEDS: SYMBICORT 80/4.5MCG INHALER 6GM INH SCH ×2 (07:35→20:00)
[2021-03-22] MEDS: MONTELUKAST 10 MG TAB PO SCH (07:40)
[2021-03-22] MEDS: LR 1,000 ML IV SCH ×3 (07:40→16:51)
[2021-03-22] MEDS ORDERED: dexameTHASONE 4 MG/ML 1ML VIAL (J1100 PER 1MG) IV ONE (08:30)
--- NOTE | 2021-03-22 08:31 | IPNPDOC ---
Text Note Date of Service The patient was seen on 03/22/21. NOTE SUBJECTIVE: -Pain is well controlled -Very swollen face -Has a drain with high output >500cc overnight per verbal from overnight nurse OBJECTIVE: Vitals: see below General: NAD, swollen left cheek and neck HEENT: NCAT, swollen L neck and cheek. EOMI, MMM Pulm: CTAB, no wheezing or crackles, breathing comfortably on room air Cardiac: RRR, no m/r/g Abd: soft, NTND, normoactive sounds Ext: No LE edema, WWP Neuro: CN3-12 intact, nonfocal exam Psych: AOx3 Labs and Imaging: Reviewed. BMP wnl CBC pending Neck CT: Paranasal sinuses: There is thick mucoperiosteal reaction in the left maxillary sinus. Nasopharynx: Unremarkable. Dental: There are dental caries involving the maxillary 1st molars bilaterally and the left 2nd maxillary molar. Oropharynx: There is enlargement of the left faucial tonsil with a 2.1 x 1.6 x 0.9 cm collection within. Hypopharynx: Unremarkable. Larynx: Normal epiglottis. Retropharyngeal space: Unremarkable. Submandibular/Parotid glands: There is slight enlargement of the left submandibular gland related to adjacent edema. Thyroid: Normal. No enlarged or calcified nodules. Lymph nodes: There are nonenlarged bilateral level 1, level 2 and left level 5 lymph nodes which may be reactive. Trachea: Visualized trachea is unremarkable. Lungs: Unremarkable as visualized. Bones/joints: No acute fracture. Soft tissues: There are small regions of gas in the superficial soft tissues of the lateral left cheek. There is a 1.6 x 2.4 x 1.3 cm superficial soft tissue collection lateral to the left buccinator muscle. There is thickening of the left pterygoid muscle and buccinator muscle. There is induration of the left facial soft tissues. There is focal fluid tracking inferior to the angle of mandible which measures 2.6 x 1.6 x 1.0 cm. Other findings: There is thickening the left platysmas. IMPRESSION: 1. There are multiple collections, including within the left faucial tonsil, inferior to the left angle of mandible, and in the left facial soft tissues superficial to the buccinator muscle consistent with multiple abscesses. There is adjacent soft tissue swelling. 2. There are bilateral mandibular dental caries. Assessment: 26 yo M with a history of asthma and seasonal allergies who is being admitted for multiple dental abscesses with oral surgery on consult s/p I&D and removal of 4 teeth. Multiple dental abscesses: -Imaging as noted above -POD #1, s/p I&D and removal of 4 teeth on 03/21 -unasyn 3g Q6H -NPO -on fluids -will give 10mg dexamethasone for swelling, once -full liquid diet Asthma: -continue home mdi's and montelukast DVT ppx: TEDs. VS,Fishbone, I+O VS, Fishbone, I+O Laboratory Tests 03/21/21 13:21 03/22/21 05:57 Vital Signs Date Time Temp Pulse Resp B/P (MAP) Pulse Ox O2 Delivery O2 Flow Rate FiO2 03/22/21 06:00 98.0 99 20 126/89 (101) 96 Room Air 03/21/21 18:05 10.0 I&O- Last 24 Hours up to 6 AM 03/22/21 06:00 Intake Total 4315 ml Output Total 1135 ml Balance 3180 ml KIRSTIE HURST MD Mar 22, 2021 08:31
[2021-03-22 10:08] LABS: HEMATOCRIT 42.3 % (42.0-52.0); HEMOGLOBIN 14.3 g/dl (13.5-17.5); MEAN CORPUSCULAR HEMOGLOBIN 30.4 pg (27.0-33.0); MEAN CORPUSCULAR HGB CONC 33.8 g/dl (32.0-36.5); PLATELET COUNT, AUTOMATED 349 10^3/uL (150-450); WHITE BLOOD COUNT 12.4 10^3/uL (4.0-10.0)
--- NOTE | 2021-03-22 12:37 | RO ---
OPERATIVE NOTE DATE OF OPERATION: 03/21/2021 PREOPERATIVE DIAGNOSIS: Left facial swelling. POSTOPERATIVE DIAGNOSIS: Left facial swelling. PROCEDURE PERFORMED: Incisional drainage of left facial swelling and extraction of teeth #16, 17, 18, 19. SURGEON: Issac Andre DMD ESTIMATED BLOOD LOSS: 10 mL COMPLICATIONS: None. ANESTHESIA: General. SPECIMENS: Teeth. DRAIN: Nichole drain. DESCRIPTION OF PROCEDURE Surgical extraction of teeth #16,17,18,19 Incision and drainage of left facial abscess.Copious amount of exudate obtained. Cultures taken. Area irrigated and nichole drain. Nichole secured in placed with 3-0 silk Patient extubated when criteria was meet by anesthesia and transfer to recovery in stable condition [facility]Matthew
[2021-03-22 14:00] VITALS: BP 132/89
[2021-03-22] MEDS: MAALOX 30 ML SUSP *UDC PO PRN ×2 (16:52→23:07)
[2021-03-23] MEDS: AMPICILLIN SOD/SULBACTAM SOD 3 GM in D5W MINI-BAG PLUS 100 ML IV SCH ×2 (01:46→08:29)
[2021-03-23] MEDS: LR 1,000 ML IV SCH (01:46)
[2021-03-23 06:00] VITALS: BP_SYST 114; BP_SYST 140; BP_DIAS 68; BP_DIAS 83
[2021-03-23 06:55] LABS: HEMATOCRIT 40.4 % (42.0-52.0); HEMOGLOBIN 13.5 g/dl (13.5-17.5); MEAN CORPUSCULAR HEMOGLOBIN 30.1 pg (27.0-33.0); MEAN CORPUSCULAR HGB CONC 33.4 g/dl (32.0-36.5); PLATELET COUNT, AUTOMATED 349 10^3/uL (150-450); RED BLOOD COUNT 4.49 10^6/uL (4.30-6.10); WHITE BLOOD COUNT 15.2 10^3/uL (4.0-10.0)
[2021-03-23 07:26] LABS: BLOOD UREA NITROGEN 17 MG/DL (7-18); CALCIUM LEVEL 8.5 MG/DL (8.5-10.1); CARBON DIOXIDE LEVEL 26 MEQ/L (21-32); CHLORIDE LEVEL 107 MEQ/L (98-107); CREATININE FOR GFR 0.77 MG/DL (0.70-1.30); GLOMERULAR FILTRATION RATE > 60.0 (>60); GLUCOSE, FASTING 100 MG/DL (70-100); POTASSIUM SERUM 4.2 MEQ/L (3.5-5.1); SODIUM LEVEL 139 MEQ/L (136-145)
[2021-03-23] MEDS: SYMBICORT 80/4.5MCG INHALER 6GM INH SCH (07:55)
[2021-03-23] MEDS: MONTELUKAST 10 MG TAB PO SCH (08:28)
[2021-03-23] MEDS ORDERED: TRAM50TA2 PO (10:40)
[2021-03-23] MEDS ORDERED: traMADol 50 MG TAB PO PRN (10:40)
[2021-03-23] MEDS ORDERED: AUGM875T28 PO (10:50)
--- NOTE | 2021-03-23 10:50 | DS.PDOC ---
Discharge Summary General Date of Admission Mar 21, 2021 at 10:43 Date of Discharge 03/23/2021 Attending Physician: KIRSTIE HURST MD Specialist/Consultants Involve: BUD ANDRE DMD Discharge Summary PROCEDURES PERFORMED DURING STAY: dental abscesses I&D and removal of 4 teeth with drain placement on 03/21 ADMITTING DIAGNOSES: Dental pain with infection DISCHARGE DIAGNOSES: Sepsis 2/2 Multiple dental abscesses Asthma Seasonal allergies COMPLICATIONS/CHIEF COMPLAINT: Facial Swelling, Migratory Dental Abscess. HISTORY OF PRESENT ILLNESS: 26 yo M with a history of asthma and seasonal allergies who developed dental pain on 03/15 and on 03/16 was prescribed amoxicillin. He represented to his provider on 03/18 and antibiotics were escalated to clindamycin but unfortunately his pain and dental infection did not remit, instead he developed worsening L facial swelling and today he could not swallow his medication so he presented to the ED. HOSPITAL COURSE: In the ED, he had a low grade temp to 100.2 and was was otherwise normotensive. Workup was notable for leukocytosis to 17.3, ESR 40, CRP 28, na 135, K 3.[address] neck revealed multiple collections, including within the left faucial tonsil, inferior to the left angle of mandible, and in the left facial soft tissues superficial to the buccinator muscle consistent with multiple abscesses. ED consulted Dr. Andre of oral surgery who took him to the OR for I&D of multiple abscess collections and extracted 4 teeth and placed a drain. In the meantime, he was started on toradol for pain and IV unasyn. He is now being discharged home to see oral surgery tomorrow AM between [address] Andre direction to remove the drain in his mouth, and will be on augmentin 10days. Of note, his persisting leukocytosis is likely secondary to the decadron doses he received for the swelling. DISCHARGE MEDICATIONS: Please see below. ALLERGIES: Please see below. PHYSICAL EXAMINATION ON DISCHARGE: VITAL SIGNS: Please see below. General: NAD, swollen left cheek and neck HEENT: NCAT, swelling of L neck and cheek has improved. EOMI, MMM Pulm: CTAB, no wheezing or crackles, breathing comfortably on room air Cardiac: RRR, no m/r/g Abd: soft, NTND, normoactive sounds Ext: No LE edema, WWP Neuro: CN3-12 intact, nonfocal exam Psych: AOx3 LABORATORY FINDINGS: see below IMAGING: Neck CT: Paranasal sinuses: There is thick mucoperiosteal reaction in the left maxillary sinus. Nasopharynx: Unremarkable. Dental: There are dental caries involving the maxillary 1st molars bilaterally and the left 2nd maxillary molar. Oropharynx: There is enlargement of the left faucial tonsil with a 2.1 x 1.6 x 0.9 cm collection within. Hypopharynx: Unremarkable. Larynx: Normal epiglottis. Retropharyngeal space: Unremarkable. Submandibular/Parotid glands: There is slight enlargement of the left submandibular gland related to adjacent edema. Thyroid: Normal. No enlarged or calcified nodules. Lymph nodes: There are nonenlarged bilateral level 1, level 2 and left level 5 lymph nodes which may be reactive. Trachea: Visualized trachea is unremarkable. Lungs: Unremarkable as visualized. Bones/joints: No acute fracture. Soft tissues: There are small regions of gas in the superficial soft tissues of the lateral left cheek. There is a 1.6 x 2.4 x 1.3 cm superficial soft tissue collection lateral to the left buccinator muscle. There is thickening of the left pterygoid muscle and buccinator muscle. There is induration of the left facial soft tissues. There is focal fluid tracking inferior to the angle of mandible which measures 2.6 x 1.6 x 1.0 cm. Other findings: There is thickening the left platysmas. IMPRESSION: 1. There are multiple collections, including within the left faucial tonsil, inferior to the left angle of mandible, and in the left facial soft tissues superficial to the buccinator muscle consistent with multiple abscesses. There is adjacent soft tissue swelling. 2. There are bilateral mandibular dental caries. PROGNOSIS: Good ACTIVITY: As tolerated DIET: Full liquid diet, to advance slowly DISCHARGE PLAN: home with augmentin for 10d, PCP within 7d, see oral surgery tomorrow morning. DISPOSITION: Home DISCHARGE INSTRUCTIONS: home with augmentin for 10d, PCP within 7d, see oral surgery tomorrow morning. ITEMS TO FOLLOWUP ON ON OUTPATIENT: Dental abscesses DISCHARGE CONDITION: Stable TIME SPENT ON DISCHARGE: 34 minutes. Vital Signs/I&Os Vital Signs Date Time Temp Pulse Resp B/P (MAP) Pulse Ox O2 Delivery O2 Flow Rate FiO2 11/1/21 06:00 98.5 66 16 114/68 (83) 96 Room Air 03/21/21 18:05 10.0 I&O- Last 24 Hours up to 6 AM 03/23/21 06:00 Intake Total 3440 ml Balance 3440 ml Laboratory Data Labs 24H Laboratory Tests 2 03/23/21 06:40: Nucleated Red Blood Cells % (auto) 0.0, Anion Gap 6L, Glomerular Filtration Rate > 60.0, Calcium Level 8.5 CBC/BMP Laboratory Tests 03/23/21 06:40 Microbiology Microbiology 03/21/21 Anaerobic Culture, Received Pending 03/21/21 Gram Stain - Final, Resulted 03/21/21 Abscess Culture, Resulted Pending 03/21/21 Gram Stain - Final, Resulted 03/21/21 Wound Culture, Resulted Pending 03/21/21 Blood Culture - Preliminary, Resulted No growth after 24 hours . All specim... 03/21/21 Blood Culture - Preliminary, Resulted No growth after 24 hours . All specim... Discharge Medications Scheduled Loratadine (Loratadine) 10 Mg Tablet, 10 MG PO DAILY, (Reported) Mometasone/Formoterol (Dulera 200 Mcg/5 Mcg Inhaler) 13 Gm Hfa.aer.ad, 2 PUFF INH BID, (Reported) Montelukast Sodium (Montelukast Sodium) 10 Mg Tablet, 10 MG PO DAILY, (Reported) Scheduled PRN Albuterol Sulfate (Proair Hfa) 8.5 Gm Hfa.aer.ad, 2 PUFF INH Q4H PRN for SOB/WHEEZING, (Reported) Tramadol HCl (Tramadol HCl) 50 Mg Tablet, 50 MG PO Q8HP PRN for MODERATE PAIN (PS 5-7) Allergies Coded Allergies: No Known Allergies (Unverified , 03/21/21) KIRSTIE HURST MD Mar 23, 2021 10:50
== END 2021-03-23 12:43 | disposition home or self-care (01) ==
LOC: M ED 10:42 → M ED INP 10:43 → M MSPAV 19:50
PROVIDERS: ADMIT Internal Medicine; ATTEND Internal Medicine
DX: K12.2 Cellulitis and abscess of mouth (principal); K02.9 Dental caries, unspecified; Z79.899 Other long term (current) drug therapy
CPT/HCPCS: 36415; 41800; 41899; 70491; 80047; 80048; 80053; 83605; 85025; 85027; 85652; 86140; 87040; 87070; 87075; 87076; 87077; 87186; 87205; 87631; 88300; 94640; 94664; 96361; 96365; 96366; 96375; 96376; 99284; J0131; J0330; J1100; J1885; J2250; J2405; J3010; Q9967